=== PATIENT | male | born 1975 | race Caucasian/White ===

== ENCOUNTER 2018-01-18 08:39 | Inpatient (IN) ==
[2018-01-18] MEDS ORDERED: Ketorolac 30 MG/ML VIAL IVP ONE (09:02)
--- NOTE | 2018-01-18 09:02 | Emergency Department Note ---
Disposition Clinical Impression: D-dimer, elevated Chest pain Qualifiers: Chest pain type: other chest pain Qualified Code(s): R07.89 - Other chest pain ; R07.8 - Other chest pain Disposition: Admitted As Inpatient Condition: Fair SOB HPI - General Chief Complaint: ED Shortness of Breath/Dyspnea Stated Complaint: PATSY Time Seen by Provider: 01/18/18 08:49 Source: patient, family Mode of arrival: EMS Limitations: no limitations Nursing Notes Reviewed: Yes Vital Signs Reviewed: Yes - History of Present Illness 42 year old previous smoker, DVT (in March 2017, not on blood thinner) presents with shortness of breath and chest pain for a month. Pt was diagnosed with pneumonia in November. SInce a month ago, pt felt constant shortness of breath and bilateral lower rib pain. No cough. No chill and fever. Pt reported activity intolerance. Walking a little bit may cause him can't catch breath. Pt Subjective Complaint: shortness of breath, chest pain Onset (ago): month(s) (1) Severity: moderate Improves with: rest Worsens with: movement Known history of: other (recent pneumonia) - Related Data Home Medications Medication Instructions Recorded Confirmed Hydralazine HCl 100 mg PO TID 01/18/18 01/18/18 amLODIPine PO DAILY 01/18/18 cloNIDine HCl [Clonidine HCl] 0.2 mg PO BID 01/18/18 01/18/18 Allergies Allergy/AdvReac Type Severity Reaction Status Date / Time naproxen AdvReac Headache Verified 01/18/18 08:42 Constitutional: Denies: fever, chills, weakness Eyes: Denies: eye pain, eye discharge, vision change ENT ED: Denies: ear pain, throat pain, dental pain Cardiovascular: Reports: chest pain, dyspnea on exertion. Denies: palpitations , syncope Respiratory: Reports: dyspnea. Denies: cough, wheezes Gastrointestinal: Denies: abdominal pain, nausea, vomiting Genitourinary: Denies: urgency, dysuria, frequency Musculoskeletal: Denies: back pain, neck pain, joint swelling Integumentary: Denies: rash, abrasion Neurological: Denies: headache, weakness, numbness Psychiatric: Denies: anxiety, depression, suicidal thoughts Endocrine: Denies: fatigue, heat or cold intolerance Hematological/Lymphatic: Denies: easy bleeding, easy bruising Allergic/Immunologic: Denies: facial swelling, urticaria Past Medical History - Past Medical History Medical history: Reports: DVT, hypertension Psychiatric history: Reports: anxiety - Social History Smoking Status: Current every day smoker Alcohol use: Reports: occasionally Drug use: Reports: marijuana Physical Exam - General Limitations: no limitations General appearance: alert - Head Head exam: atraumatic, normal inspection - Eye Eye exam: Present: normal appearance. Absent: scleral icterus, conjunctival injection - ENT ENT exam: normal exam - Neck Neck exam: Present: normal inspection, full ROM, trachea midline. Absent: tenderness - Chest Chest inspection: Present: normal inspection, symmetric chest wall rise. Absent : tenderness - Respiratory Respiratory exam: Present: normal lung sounds bilaterally. Absent: respiratory distress, wheezes - Cardiovascular Cardiovascular exam: Present: tachycardia - Abdominal Exam Abdominal exam: Present: soft, Non-Tender - Extremities Exam Extremities exam: Present: normal inspection, full ROM. Absent: tenderness - Back Exam Back exam: Present: normal inspection, full ROM. Absent: tenderness - Neurological Exam Neurological exam: Present: alert, oriented X3 - Psychiatric Psychiatric exam: Present: normal affect, normal mood - Skin Skin exam: Present: warm, intact Course Vital Signs Temperature 0 F L 01/18/18 08:39 Pulse Rate 103 01/18/18 08:39 Respiratory Rate 24 01/18/18 08:39 Blood Pressure 215/162 01/18/18 08:39 O2 Sat by Pulse Oximetry 100 01/18/18 08:39 Temperature 97.9 F 01/18/18 09:45 Pulse Rate 97 01/18/18 09:45 Respiratory Rate 24 01/18/18 11:12 Blood Pressure 212/156 01/18/18 11:12 O2 Sat by Pulse Oximetry 99 01/18/18 09:45 Oxygen Delivery Oxygen Delivery Nasal Cannula Shortness of Breath/Dyspnea - [facility] Narrative Medical decision making narrative: 42 year old male presents with shortness of breath and bilateral rib pain for a month. Got worse since last night. Associate with activity intolerance. No cough. No chill and fever. No leg pain. History of DVT on March 2017 in left leg, not currently on blood thinner, reported that he was told still has blood clot in leg; had Pneumonia in November. physical exam: tachycardia, lung sounds clear. Rectal exam normal, Guiac test negative. EKG unremarkable. Labs D-dimer 3136, Troponin 0.15, cr. 6.5 , VQ ordered, results pending. impression: PE VS. ID , plan : start Heparin drip, admit. Discussed with Dr. Saavedra who agrees the above plan. - Lab Data Lab results reviewed: Yes I reviewed the patient's lab results. Result diagrams: 01/18/18 09:00 01/18/18 09:00 Lab Results 01/18/18 01/18/18 01/18/18 Range/Units 09:00 09:00 09:00 WBC 8.7 (4.3-11.1) K/mcL RBC 3.43 L (4.19-5.50) M/mcL Hgb 9.7 L (12.9-16.9) g/dL Hct 28.5 L (37.5-50.1) % MCV 83.1 (83.0-100.0) fL MCH 28.3 (28.0-33.3) pg MCHC 34.0 (31.6-35.5) g/dL RDW 14.7 H (11.5-14.5) % Plt Count 200 (140-400) K/mcL MPV 10.7 (9.4-12.4) fL Immature Gran % 0.5 (0-4) % Seg Neutrophils % 78.5 % Lymphocytes % 14.3 % Monocytes % 5.6 % Eosinophils % 0.3 % Basophils % 0.8 % Neutrophils # 6.8 (1.6-8.9) K/mcL Lymphocytes # 1.2 (0.6-4.6) K/mcL Monocytes # 0.5 (0.0-1.3) K/mcL Eosinophils # 0.0 (0.0-0.6) K/mcL Basophils # 0.1 (0.0-0.2) K/mcL PT 14.6 H (9.4-12.1) Seconds INR 1.3 APTT 30.9 (26.0-36.0) Seconds D-Dimer 3106 H (0-500) ng/mLFEU Sodium 139 (136-145) mEq/L Potassium 3.5 (3.5-5.1) mEq/L Chloride 106 (98-107) mEq/L Carbon Dioxide 16 L (23-29) mEq/L BUN 63 H (6-20) mg/dL Creatinine 6.37 H (0.70-1.30) mg/dL Est GFR ( Amer) 12 L (> 60) Est GFR (Non-Af Amer) 10 L (> 60) BUN/Creatinine Ratio 10 (6-26) Glucose 142 H (70-105) mg/dL Calculated Osmolality 308 H (280-300) Lactic Acid (0.5-2.2) mmol/L Calcium 9.7 (8.6-10.3) mg/dL Total Bilirubin 1.2 H (0.3-1.0) mg/dL AST 40 H (13-39) Units/L ALT 49 (7-52) Units/L Alkaline Phosphatase 132 H (34-104) Units/L Troponin I 0.15 H* (< 0.04) ng/mL Serum Total Protein 6.5 (6.4-8.9) g/dL Albumin 4.2 (3.5-5.7) g/dL Globulin 2.3 L (2.4-3.5) g/dL Albumin/Globulin Ratio 1.8 (1.1-2.2) 01/18/18 Range/Units 10:48 WBC (4.3-11.1) K/mcL RBC (4.19-5.50) M/mcL Hgb (12.9-16.9) g/dL Hct (37.5-50.1) % MCV (83.0-100.0) fL MCH (28.0-33.3) pg MCHC (31.6-35.5) g/dL RDW (11.5-14.5) % Plt Count (140-400) K/mcL MPV (9.4-12.4) fL Immature Gran % (0-4) % Seg Neutrophils % % Lymphocytes % % Monocytes % % Eosinophils % % Basophils % % Neutrophils # (1.6-8.9) K/mcL Lymphocytes # (0.6-4.6) K/mcL Monocytes # (0.0-1.3) K/mcL Eosinophils # (0.0-0.6) K/mcL Basophils # (0.0-0.2) K/mcL PT (9.4-12.1) Seconds INR APTT (26.0-36.0) Seconds D-Dimer (0-500) ng/mLFEU Sodium (136-145) mEq/L Potassium (3.5-5.1) mEq/L Chloride (98-107) mEq/L Carbon Dioxide (23-29) mEq/L BUN (6-20) mg/dL Creatinine (0.70-1.30) mg/dL Est GFR ( Amer) (> 60) Est GFR (Non-Af Amer) (> 60) BUN/Creatinine Ratio (6-26) Glucose (70-105) mg/dL Calculated Osmolality (280-300) Lactic Acid 1.4 (0.5-2.2) mmol/L Calcium (8.6-10.3) mg/dL Total Bilirubin (0.3-1.0) mg/dL AST (13-39) Units/L ALT (7-52) Units/L Alkaline Phosphatase (34-104) Units/L Troponin I (< 0.04) ng/mL Serum Total Protein (6.4-8.9) g/dL Albumin (3.5-5.7) g/dL Globulin (2.4-3.5) g/dL Albumin/Globulin Ratio (1.1-2.2) - Radiology Data Radiology results reviewed: Yes I reviewed the patient's radiology results. Attestation Statement - Attestation Attestation: I examined this patient and my medical decision-making was reviewed with the Resident Physician. I agree with the documented findings, disposition and treatment plan as described except to the extent set forth below. Patient to the ED complaining of shortness of breath. Patient states he has been short of breath since he was not admitted in November for pneumonia. He states he never really got better but it worsened last night. No fever. Dry cough. Patient awake and alert on examination. Lung sounds is diminished. Abdomen soft. He is afebrile. Plan. Patient is a d-dimer 3000. VQ scan pending. Chest x-ray shows a possible infiltrate. Creatinine is 6. We will admit. Patient unable to tolerate VQ scan. Dr. Eastman aware. Request bladder scan. Dining Room Helper states that we will obtain this and contact him with results. Second liter IV fluids ordered.
[2018-01-18 09:21] LABS: Basophils # 0.1 K/mcL (0.0-0.2); Basophils % 0.8 %; Eosinophils % 0.3 %; Hematocrit 28.5 % (37.5-50.1); Hemoglobin 9.7 g/dL (12.9-16.9); Immature Granulocytes % 0.5 % (0-4); Lymphocytes # 1.2 K/mcL (0.6-4.6); Lymphocytes % 14.3 %; Mean Corpuscular Hemoglobin 28.3 pg (28.0-33.3); Mean Corpuscular Volume 83.1 fL (83.0-100.0); Mean Platelet Volume 10.7 fL (9.4-12.4); Monocytes # 0.5 K/mcL (0.0-1.3); Monocytes % 5.6 %; Neutrophils # 6.8 K/mcL (1.6-8.9); Platelet Count 200 K/mcL (140-400); Red Blood Count 3.43 M/mcL (4.19-5.50); Red Cell Distribution Width 14.7 % (11.5-14.5); Segmented Neutrophils % 78.5 %
[2018-01-18 09:38] LABS: Albumin 4.2 g/dL (3.5-5.7); Albumin/Globulin Ratio 1.8 (1.1-2.2); Bilirubin,Total 1.2 mg/dL (0.3-1.0); Calcium 9.7 mg/dL (8.6-10.3); Globulin 2.3 g/dL (2.4-3.5); Potassium 3.5 mEq/L (3.5-5.1); Total Protein 6.5 g/dL (6.4-8.9)
[2018-01-18 09:39] LABS: Troponin I 0.15 ng/mL (< 0.04)
[2018-01-18] MEDS ORDERED: 0.9 % Sodium Chloride 1,000 ML IVC ONE ×2 (09:43→11:14)
[2018-01-18] MEDS ORDERED: *HR* Heparin 5,000 UNIT/ML VIAL IVP ONE (09:57)
[2018-01-18 10:19] LABS: INR 1.3; Prothrombin Time 14.6 Seconds (9.4-12.1)
[2018-01-18 10:22] LABS: Activated Partial Thrombo Time 30.9 Seconds (26.0-36.0)
--- NOTE | 2018-01-18 10:48 | Internal Med History&Physical ---
<Robert Reyes - Last Filed: 01/18/18 17:46> Date of Encounter: 01/18/18 Time of Encounter: 10:45 Assessment and Plan (1) Pulmonary embolism Current visit: Yes Status: Acute Patient's condition is concerning for pulmonary embolism. -Patient presented with an elevated d-dimer at 3136, elevated troponin 0.15, shortness of breath, tachycardia, and has a history of prior DVT. -DVT was in March 2017; patient has not been on a blood thinner. Plan: -VQ scan -Heparin drip -Trend troponin -O2 via nasal cannula. SNOMED Code(s): 46018579 (2) PNA (pneumonia) Current visit: Yes Status: Acute Patient presented with shortness of breath. -Was hospitalized in November for pneumonia; completed course of Levaquin. -Chest x-ray demonstrates left basilar opacity suffocation with mild pleural effusion suggestive of pneumonia. -Patient's white count is normal. Plan: -Blood and sputum culture -Urine antigens -Vancomycin and Levaquin (3) Hypertensive urgency Current visit: Yes Status: Acute Patient presented with an elevated blood pressure at 215/162. -Patient has a known history of hypertension. Plan: -Restart home clonidine, hydralazine, amlodipine. (4) Renal failure Current visit: Yes Status: Acute Patient presented with an elevated creatinine at 6.5. -No known history of kidney disease. -RAUDEL versus CKD -Retroperitoneal ultrasound. -Urinalysis -Fractional excretion of sodium -Consult nephrology -IV fluids, avoid nephrotoxins -24 hr urine protein, urine eosinophils (5) Anemia Current visit: Yes Status: Acute Patient has a hemoglobin of 9.7 on admission. -No prior hemoglobin levels to compare to -FOBT Internal Medicine - H&P: HPI Admitted From: Home History of present illness: Patient is a 42-year-old male who presents to the ED with shortness of breath and bilateral rib pain 1 month. Pain worsened last night. Activity intolerance. Denies cough, fever, chills. Had a previous DVT in March 2017; not currently on a blood dinner. Patient was diagnosed with pneumonia in November. States that since this, he has felt constant shortness of breath and bilateral lower rib pain. Upon arrival, patient had an elevated blood pressure 215/162. Patient was tachycardic at 10 3 bpm, respiratory rate was 24. D-dimer was noted to be elevated at 3136, troponin is elevated at 0.15, creatinine is 6.5. Chest x-ray demonstrated left basilar opacification with mild pleural effusion suggesting pneumonia with parapneumonic effusion. Patient was seen and examined at bedside this morning. Patient reports that his symptoms have not improved since admission. He still feels pain in the ribs bilaterally, as well as shortness of breath. Reports some anxiety. Denies having a productive cough at this time. Past Med Surg Social Fam HX - Past Medical History Medical history: DVT, hypertension Psychiatric history: anxiety - Social History Smoking Status: Current every day smoker Alcohol use: occasionally Drug use: marijuana - Family History Mother Hx Family Cardiac Disorders: Yes (HTN) Internal Medicine - H&P: Meds Hydralazine HCl 100 mg PO TID 01/18/18 [History] amLODIPine PO DAILY 01/18/18 [History] cloNIDine HCl [Clonidine HCl] 0.2 mg PO BID 01/18/18 [History] 3 Allergy/AdvReac Type Severity Reaction Status Date / Time naproxen AdvReac Headache Verified 01/18/18 08:42 All Systems PM: A 10-system review of systems was performed and is negative for pertinent findings except as documented above in the HPI. - Constitutional Constitutional: no chills, no fever(s), no night sweats - EENT Eyes: no change in vision, no discharge, no pain, no photophobia Ears: no ear discharge, no ear pain, no tinnitus Nose, mouth and throat: no dysphagia, no nasal discharge, no neck pain - Cardiovascular Cardiovascular ROS IM: no chest pain, no dyspnea, no lightheadedness, no palpitations, no syncope - Respiratory Respiratory: cough, dyspnea, no wheezing, no excessive phlegm production - Gastrointestinal Gastrointestinal: no abdominal pain, no diarrhea, no hematemesis, no hematochezia, no melena, no nausea, no vomiting - Musculoskeletal Musculoskeletal ROS IM: no numbness, no tingling - Integumentary Integumentary IM: no rash, no unusual bruising - Neurological Neurological ROS: no confusion, no convulsions, no focal weakness, no numbness, no tingling, no tremor(s) - Hematologic/Lymphatic Hematologic/Lymphatic: no easy bruising - Constitutional Vitals: Temp Pulse Resp BP Pulse Ox 97.9 F 97 20 209/157 99 01/18/18 09:45 01/18/18 09:45 01/18/18 09:45 01/18/18 09:45 01/18/18 09:45 General appearance: Present: mild distress, A&O X 3, answers questions appropriately - Head Head exam: Present: atraumatic, normocephalic - Eye Eye exam: Present: PERRL, conjuntiva pink, sclera anicteric Pupils: Present: PERRL - Neck Neck exam general surgery: Present: supple, trachea midline. Absent: lymphadenopathy - Respiratory Respiratory exam: Present: decreased breath sounds. Absent: accessory muscle use, rales, rhonchi, wheezes - Cardiovascular Cardiovascular exam: Present: +S1, +S2, tachycardia. Absent: diastolic murmur, gallop, rubs, systolic murmur - Extremities Exam Extremities exam: Present: warm, radial pulses palpable and symmetrical. Absent : calf tenderness, cyanotic, pedal edema - Neurological Exam Neurological exam: Present: CN II-XII intact, oriented X3, no focal deficits. Absent: pronater drift, facial droop, speech deficit - Skin Skin exam: Present: dry, intact Internal Med - H&P Results - Labs CBC & Chem 7: 01/18/18 09:00 01/18/18 09:00 Labs: Short CBC 01/18/18 Range/Units 09:00 WBC 8.7 (4.3-11.1) K/mcL Hgb 9.7 L (12.9-16.9) g/dL Hct 28.5 L (37.5-50.1) % Plt Count 200 (140-400) K/mcL Neutrophils # 6.8 (1.6-8.9) K/mcL BMP 01/18/18 09:00 Sodium 139 Potassium 3.5 Chloride 106 Carbon Dioxide 16 L BUN 63 H Creatinine 6.37 H Glucose 142 H Calcium 9.7 Cardiac Enzymes 01/18/18 Range/Units 09:00 Troponin I 0.15 H* (< 0.04) ng/mL Liver Function 01/18/18 Range/Units 09:00 Total Bilirubin 1.2 H (0.3-1.0) mg/dL AST 40 H (13-39) Units/L ALT 49 (7-52) Units/L Alkaline Phosphatase 132 H (34-104) Units/L Albumin 4.2 (3.5-5.7) g/dL - Impressions ITS Impressions Chest X-Ray 01/18/18 08:52 IMPRESSION: Left basilar opacification with mild pleural effusion suggesting pneumonia with parapneumonic effusion in the appropriate clinical setting. RECOMMENDATIONS: Radiographic follow up to resolution. D/ / Lorin Reyes MD / Lorin Reyes MD Interpreting Provider: Lorin Reyes MD <Donnell Reddy - Last Filed: 01/19/18 12:17> Date of Encounter: 01/19/18 Internal Medicine - H&P: HPI History of present illness: Mr. Schmid is a 42 year old male All Systems PM: A 10-system review of systems was performed and is negative for pertinent findings except as documented above in the HPI. - Constitutional Vitals: Temp Pulse Resp BP Pulse Ox 98.6 F 90 16 130/82 95 01/19/18 10:57 01/19/18 10:57 01/19/18 10:57 01/19/18 10:57 01/19/18 10:57 Internal Med - H&P Results - Labs CBC & Chem 7: 01/19/18 08:41 01/19/18 08:41 Labs: Short CBC 01/19/18 Range/Units 08:41 WBC 7.4 (4.3-11.1) K/mcL Hgb 8.5 L (12.9-16.9) g/dL Hct 25.6 L (37.5-50.1) % Plt Count 156 (140-400) K/mcL Neutrophils # 5.4 (1.6-8.9) K/mcL BMP 01/19/18 08:41 Sodium 138 Potassium 3.1 L Chloride 107 Carbon Dioxide 19 L BUN 61 H Creatinine 6.49 H Glucose 122 H Calcium 9.0 - Impressions ITS Impressions Retroperitoneum Ultrasound 01/18/18 19:00 IMPRESSION: 5 mm nonobstructing nephrolith on the left. Simple right renal cyst. Small left effusion. D/ / Bala Mcdonough MD / Bala Mcdonough MD Interpreting Provider: Bala Mcdonough MD - Attending Attestation I examined this patient and my medical decision-making was reviewed with the Resident Physician. I agree with the documented findings, disposition and treatment plan as described except to the extent set forth below.
[2018-01-18] MEDS: Heparin 25,000 UNIT/500 ML D5W 25,000 UNIT/500 ML BAG IVC SCH ×2 (10:50→11:00)
[2018-01-18] MEDS ORDERED: *HR* LORazepam 2 MG/ML VIAL IVP ONE (10:56)
[2018-01-18] MEDS ORDERED: *HR* LORazepam 2 MG/ML VIAL ONE (10:57)
[2018-01-18] MEDS ORDERED: Levofloxacin 750 MG/150 ML 750 MG/150 ML BAG IVPB ONE (12:00)
[2018-01-18] MEDS ORDERED: Vancomycin 1 EACH in 0.9 % Sodium Chloride 250 ML IVPB SCH (12:00)
[2018-01-18] MEDS ORDERED: cloNIDine HCl 0.1 MG TABLET PO SCH (12:15)
[2018-01-18] MEDS: hydrALAZINE 25 MG TABLET PO SCH ×2 (13:23→21:16)
[2018-01-18] MEDS ORDERED: amLODIPine 5 MG TABLET PO SCH (13:30)
[2018-01-18] MEDS: *HR* OxyCODONE/APAP 5/325 TABLET PO PRN ×2 (13:39→21:16)
[2018-01-18 14:01] LABS: Amphetamine Screen,Urine Positive ng/mL (Cutoff=1000); Barbiturate Screen,Urine Negative ng/mL (Cutoff=200); Benzodiazepines Screen,Urine Negative ng/mL (Cutoff=200); Cannabinoid Screen,Urine Negative ng/mL (Cutoff = 50); Cocaine Screen,Urine Negative ng/mL (Cutoff= 300); Opiate Screen,Urine Negative ng/mL (Cutoff=300); Phencyclidine Screen,Urine Negative ng/mL (Cutoff=25)
[2018-01-18] MEDS: *HR* LORazepam 1 MG TABLET PO PRN (14:17)
[2018-01-18] MEDS: amLODIPine 5 MG TABLET PO SCH (16:22)
[2018-01-18] MEDS: Cefepime HCl 1,000 MG in Water for inj. (sterile) 20 ML 10 ML IVP SCH (16:22)
[2018-01-18] MEDS: cloNIDine HCl 0.1 MG TABLET PO SCH ×2 (16:22→21:16)
--- NOTE | 2018-01-18 17:40 | Nephrology Consult Note ---
Date of Encounter: 01/18/18 Time of Encounter: 17:35 Assessment and Plan (1) Renal failure Current Visit: Yes Status: Deleted Elevated SCr unclear whether acute or chronic Will obtain US of kidney Will check urine for UA, sodium, eosinophils, protein and creatinine No acute indication for [employer] at this time Avoid nephrotoxins if possible Will check JF and complements, C3, C4 Will check uric acid and CPK levels If records can be obtained from [facility], that would be great Qualifiers: Renal failure chronicity: unspecified chronicity Qualified Code(s): N19 - Unspecified kidney failure (2) Hypertensive urgency Current Visit: Yes Status: Acute Resume home BP regimen, unclear if taking. Agree with clonidine tid instead of bid Agree with amlodipine at 10mg instead of 5mg daily (3) Acute respiratory failure with hypoxia Current Visit: Yes Status: Acute Abx and heparin per primary team Wound not recommend CTA if possible given RAUDEL to prevent DEANDRE History of Present Illness - Reason for Consult Consult date: 01/18/18 Acute Kidney Injury, Chronic Kidney Disease Requesting physician: Robert Reyes - History of Present Illness 42 y o male with PMH of DVT not on anticoag, HTN and smoker admitted with a month long SOB and chest pain with concerns for PE and PNA. Renal consulted for elevated SCr of 6.37, GFR 10. No baseline available as pt just recently moved to the area from [facility] where he was hospitalized in november for PNA and may have been told of renal dysfunction the. He denies any other prior history or mention of renal disease. He denies any family history of renal disease as well. He denied any urinary sxs as well. BP readings noted very elevated in the 200s systolic on presentation. Pt seen and examined complaining of severe rib pain bilateral and visibly dyspneic. No NSAIDs use. Past Med Surg Social Fam HX - Past Medical History Medical history: DVT, hypertension Psychiatric history: anxiety - Social History Smoking Status: Current every day smoker Alcohol use: occasionally Drug use: marijuana - Family History Mother Hx Family Cardiac Disorders: Yes (HTN) Medications and Allergies Hydralazine HCl 100 mg PO TID 01/18/18 [History] amLODIPine PO DAILY 01/18/18 [History] cloNIDine HCl [Clonidine HCl] 0.2 mg PO BID 01/18/18 [History] 3 Allergy/AdvReac Type Severity Reaction Status Date / Time naproxen AdvReac Headache Verified 01/18/18 08:42 Review of Systems All Systems: reviewed and no additional remarkable complaints except as stated ( 10 systems reviewed) Exam - Vital Signs Vital signs: Initial Vital Signs Temp Pulse Resp BP Pulse Ox 0 F L 103 24 215/162 100 01/18/18 08:39 01/18/18 08:39 01/18/18 08:39 01/18/18 08:39 01/18/18 08:39 Vital Signs - Last 8 Hours Temp Pulse Resp BP Pulse Ox 01/18/18 15:29 97.5 F L 101 16 195/149 98 01/18/18 14:13 106 209/155 97 01/18/18 12:20 98.9 F 102 18 211/168 98 01/18/18 11:12 24 212/156 Intake and Output 01/18/18 01/18/18 01/18/18 07:59 15:59 23:59 Intake Total 0 / 0 Output Total 100 / 100 Balance -100 / -100 Intake: Oral 0 / 0 Output: Catheter 100 / 100 - General Appearance General appearance: moderate distress (with SOB and pain) EENT: ATNC, mucous membranes moist Neck: no JVD, supple Additional Comments: decreased BS bilat Cardiology: no edema, normal S1, normal S2 Gastrointestinal: no tenderness, no guarding Integumentary: warm and dry Neurologic: no focal deficit Musculoskeletal: no deformities Psychiatric: mood/affect appropriate, cooperative Results - Lab Results 01/21/18 03:45 01/21/18 03:45 Most recent lab results Calcium 9.7 mg/dL (8.6-10.3) 01/18/18 09:00 Consult Discharge Plan - Plan Referrals: NONE,PCP [Primary Care Provider] -
[2018-01-18 19:10] LABS: Uric Acid 10.5 mg/dL (2.3-7.6)
--- NOTE | 2018-01-18 20:30 | Electrocardiograph Report ---
[place] [address] Test Date: 2018-01-18 Pat Name: Jose Schmid Department: 102 Room: 2A23 Gender: M [employer] Hel[employer]: : 1975 Requested By: Barry Mcmanus Order Number: [id number] Reading MD: Zack Pastor MD Measurements Intervals [place] Rate: 101 P: 52 GA: 164 QRS: 15 QRSD: 117 T: 180 QT: 345 QTc: 403 Interpretive Statements SINUS TACHYCARDIA LEFT ATRIAL ENLARGEMENT LEFT VENTRICULAR HYPERTROPHY AND ST-T CHANGE BASELINE ARTIFACT COMPLICATES ACCURATE INTERPRETATION Electronically Signed On 01-18-2018 20:28:54 EDT by Zack Pastor MD
[2018-01-19] MEDS ORDERED: *HR* Heparin 5,000 UNIT/ML VIAL IVP PRN (00:54)
[2018-01-19] MEDS: *HR* LORazepam 1 MG TABLET PO PRN ×2 (01:29→22:04)
[2018-01-19] MEDS: *HR* OxyCODONE/APAP 5/325 TABLET PO PRN (05:42)
[2018-01-19] MEDS: Cefepime HCl 1,000 MG in Water for inj. (sterile) 20 ML 10 ML IVP SCH ×2 (05:42→16:53)
[2018-01-19] MEDS: Heparin 25,000 UNIT/500 ML D5W 25,000 UNIT/500 ML BAG IVC SCH (07:26)
[2018-01-19] MEDS: amLODIPine 5 MG TABLET PO SCH (08:43)
[2018-01-19] MEDS: cloNIDine HCl 0.1 MG TABLET PO SCH ×3 (08:43→22:04)
[2018-01-19] MEDS: hydrALAZINE 25 MG TABLET PO SCH ×3 (08:44→22:04)
[2018-01-19 09:01] LABS: Basophils # 0.1 K/mcL (0.0-0.2); Basophils % 0.7 %; Eosinophils # 0.4 K/mcL (0.0-0.6); Eosinophils % 5.6 %; Hematocrit 25.6 % (37.5-50.1); Hemoglobin 8.5 g/dL (12.9-16.9); Immature Granulocytes % 0.4 % (0-4); Lymphocytes # 1.2 K/mcL (0.6-4.6); Lymphocytes % 15.6 %; Mean Corpuscular HGB Conc 33.2 g/dL (31.6-35.5); Mean Corpuscular Hemoglobin 28.3 pg (28.0-33.3); Mean Corpuscular Volume 85.3 fL (83.0-100.0); Mean Platelet Volume 9.9 fL (9.4-12.4); Monocytes # 0.4 K/mcL (0.0-1.3); Neutrophils # 5.4 K/mcL (1.6-8.9); Platelet Count 156 K/mcL (140-400); Red Cell Distribution Width 14.7 % (11.5-14.5); Segmented Neutrophils % 72.7 %
[2018-01-19 09:22] LABS: Potassium 3.1 mEq/L (3.5-5.1)
[2018-01-19] MEDS ORDERED: Vancomycin 1 EACH in 0.9 % Sodium Chloride 250 ML IVPB PRN (10:15)
--- NOTE | 2018-01-19 10:55 | Nephrology Progress Note ---
<Dillon Flowers - Last Filed: 01/19/18 11:47> Date of Encounter: 01/19/18 Time of Encounter: 10:51 - Assessment and Plan (5) Renal failure Status: Acute SCr increased from 6.37 to 6.49. Unremarkable U/S of Kidney is more suggestive of a Pre-renal process. Uric Acid 10.5. CK is 38, unlikely caused by muscle breakdown. Etiology remains unclear for elevated Cr. - U/A, Nathanael, Eosinophils and UProtein - pending. - JF, completments, C3, and C4 - pending - continue to trend Cr - BP is better controlled MAP 173 -> today MAP 118 - avoid nephrotoxins Qualifiers: Renal failure chronicity: unspecified chronicity Qualified Code(s): N19 - Unspecified kidney failure Subjective Principal diagnosis: renal failure Interval history: Mr Mcgowan is a 42 yo M w/ pmh of DVT not on anticoag, HTN, smoker, MJ user continues to have shortness of breath at rest, mildly improved from yesterday. Patient denies chest pain at this time. Renal was consulted for SCr 6.37, GFR 10, BP's in 200's. After further discussion with patient he mentions that he tested positive for flu A, B, and had PNA from late oct to November. He also had encounters with police, when he had has ribs fractured in december. Objective - Vital Signs Vital signs: Vital Signs Temp Pulse Resp BP Pulse Ox 01/19/18 07:03 97.9 F 84 16 155/99 97 01/19/18 04:30 97.7 F 79 16 138/83 95 01/19/18 04:09 97.5 F L 83 16 150/104 97 01/18/18 23:25 97.7 F 82 16 134/87 97 01/18/18 18:58 97.6 F 88 18 181/146 97 01/18/18 15:29 97.5 F L 101 16 195/149 98 Intake and Output 01/18/18 01/19/18 01/19/18 23:59 07:59 15:59 Intake Total 240 / 240 910 / 910 35 / 35 Output Total 200 / 200 50 / 50 600 / 600 Balance 40 / 40 860 / 860 -565 / -565 Intake: IV Fluids 510 / 510 35 / 35 Heparin 25,000 UNIT/500 ML D5W 500 / 500 25 / 25 25,000 unit In 500 ml @ 14 UNIT /KG/HR 22.861 mls/hr IVC . [id number] [facility] Rx#:[id number] Maxipime 1,000 MG In Water for inj. (sterile) 10 ML @ 150 mls/ hr IVP Q12HR [facility] Rx#:[id number] Oral 240 / 240 400 / 400 Output: Urine 300 / 300 Catheter 200 / 200 50 / 50 300 / 300 Urethral (Christian) 300 / 300 Other: Meal npo Weight 74.117 kg Patient Weight 01/19/18 23:59 Weight 74.117 kg - General Appearance General appearance: Present: well-developed, well-nourished, appears started age , anxious EENT: Present: mucous membranes dry Neck: Present: no JVD, no thyromegaly, no carotid bruit, supple Additional Comments: Grossly PATSY. Difficult to hear lungs due to transmitted breath sounds. Cardiology: Present: no murmurs, no rub, no gallops, no edema, regular rate, regular rhythm, normal S1, normal S2 Gastrointestinal: Present: normoactive bowel sounds, no tenderness, no guarding , no masses Integumentary: Present: no rash, warm and dry Neurologic: Present: no focal deficit, no asterixis, alert and oriented x3 Psychiatric: Present: mood/affect appropriate, cooperative - Lab 01/19/18 08:41 01/19/18 08:41 Most recent lab results Calcium 9.0 mg/dL (8.6-10.3) 01/19/18 08:41 - VTE Reasons for not Prescribing Prophylaxis: Not indicated-Anticoagulated or INR therapeutic Consult Discharge Plan - Plan Instructions: Acute Kidney Injury (DC), Hemodialysis (DC) Referrals: [facility] [Outside] (request sent for a new patient hospital follow up on 01/26/18. Phones not working) Gely Steel MD [Partnered Physician] - (1-2 weeks patient will see the physician to HD clinic) Prescriptions: amLODIPine [Norvasc] 10 mg PO DAILY #30 tablet Carvedilol [Coreg] 12.5 mg PO BIDWM #60 tablet cloNIDine HCl [CloNIDine HCl] 0.1 mg PO TID #90 tablet Hydralazine HCl 100 mg PO TID #90 tablet <Gely Steel - Last Filed: 02/11/18 19:22> Date of Encounter: 01/19/18 - Assessment and Plan (1) Renal failure Status: Deleted Qualifiers: Renal failure chronicity: unspecified chronicity Qualified Code(s): N19 - Unspecified kidney failure (2) Hypertensive urgency Status: Acute (3) PNA (pneumonia) Status: Acute Qualifiers: Pneumonia type: due to unspecified organism Laterality: left Lung location: lower lobe of lung Qualified Code(s): J18.1 - Lobar pneumonia, unspecified organism Objective - Lab 01/27/18 04:11 01/27/18 04:11 Most recent lab results Calcium 9.3 mg/dL (8.6-10.3) 01/27/18 04:11 Magnesium 2.1 mg/dL (1.6-2.6) 01/27/18 04:11 Urine Creatinine 132 mg/dL 01/20/18 00:55 Urine Sodium 45.7 mEq/L 01/20/18 00:55 Urine Total Protein 183 mg/dL (1-14) H 01/20/18 00:55 - Attending Attestation Pt seen and examined feels better with SOB and BP readings better. SCr continues to worse despite IVF, will continue for now. 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 Awaiting workup labs. Continue to avoid nephrotoxins if possible.
[2018-01-19] MEDS ORDERED: Aminoglycoside Consult 1 EACH MC ONE (10:59)
[2018-01-19] MEDS ORDERED: *HR* FentaNYL (PF) 100 MCG/2 ML VIAL IVP PRN (11:29)
[2018-01-19] MEDS ORDERED: *HR* OxyCODONE/APAP 5/325 TABLET PO PRN (11:31)
[2018-01-19] MEDS ORDERED: *HR* LORazepam 2 MG/ML VIAL IVP ONE (11:55)
[2018-01-19 14:32] LABS: Bilirubin,Urine Negative (Negative); Blood,Urine Trace (Negative); Clarity,Urine Clear (Clear); Color,Urine Yellow (Yellow); Glucose,Urine (UA) Normal (Normal); Ketones,Urine Negative (Negative); Leukocyte Esterase,Urine Negative (Negative); Nitrite,Urine Negative (Negative); Protein,Urine >=300 mg/dL (Neg-Trace); Specific Gravity,Urine 1.024 (1.010-1.025); Urobilinogen,Urine Normal (Normal)
[2018-01-19 14:34] LABS: Bacteria,Urine None Seen per hpf (None-Few); Hyaline Casts,Urine None Seen per lpf (None-Few); RBC,Urine 50-100 per hpf (0-3); Squamous Epithelial Cell,Urine Moderate per lpf (None-Few)
--- NOTE | 2018-01-19 14:34 | Internal Med Progress Note ---
Date of Encounter: 01/19/18 Time of Encounter: 10:50 - Assessment and plan (1) Acute respiratory failure with hypoxia Current Visit: Yes Status: Acute Assessment and plan: With pneumonia and COPD exacerbation reviewed chest x-ray by myself showing left lower lobe infiltrate cont empirical abx Levaquin and Cefepime cont Duoneb ordered step pneumonia, Legionella, sputum culture and respiratory viral panel (2) PNA (pneumonia) Current Visit: Yes Status: Acute Assessment and plan: Mostly bacterial continue broad spec abx Cefepime and Levaquin Qualifiers: Pneumonia type: due to unspecified organism Laterality: left Lung location: lower lobe of lung Qualified Code(s): J18.1 - Lobar pneumonia, unspecified organism (3) RAUDEL (acute kidney injury) Current Visit: Yes Status: Acute Assessment and plan: Seems to be he does have acute kidney injury with chronic kidney disease he was admitted at [facility] in November at the time they did mention that patient had chronic kidney disease and may need hemodialysis in a couple of years so I would obtain medical records from [facility] currently patient is nonoliguric has good urine output so far his renal ultrasound came back as benign Nephro on board cont IV hydration (4) D-dimer, elevated Current Visit: Yes Status: Acute Assessment and plan: With a past history of DVT high-risk for PE patient was not able to VQ scan yesterday his VQ scan today showed low probability for PE patient does not need any anticoagulation however due to his elevated troponin I would continue heparin drip for at least 48 hours (5) Tobacco dependence Current Visit: Yes Status: Acute Assessment and plan: counseled to quit (6) Substance abuse Current Visit: Yes Status: Acute Assessment and plan: counseled to quit he does smoke Marijuana regularly his HDS showed ampethamines (7) Elevated troponin Current Visit: Yes Status: Acute Assessment and plan: Slightly elevated troponin mostly demand ischemia + due to RAUDEL continue heparin drip for 48 hrs continue trending on troponin we will get echocardiogram (8) H/O deep venous thrombosis Current Visit: Yes Status: Acute - Subjective Interval history: Mr. Schmid is a 42-year-old male who presented to the ED with shortness of breath and bilateral rib pain 1 month. Denies cough, fever, chills. Patient was diagnosed with pneumonia in November. States that since this, he has felt constant shortness of breath and bilateral lower rib pain. Had a previous DVT in March 2017; not currently on any anti coag. Upon arrival, patient had an elevated blood pressure 215/162. Patient was tachycardic at 10 3 bpm, respiratory rate was 24. D-dimer was noted to be elevated at 3136, troponin is elevated at 0.15, creatinine is 6.5. Chest x-ray demonstrated left basilar opacification with mild pleural effusion suggesting pneumonia with parapneumonic effusion. Pt was admitted in the hospital and started him broad spec abx and heparin gtt. Pt states he feels little better today, still as severe b/l rib pain. Feeling weak and lethargic. Denied any oliguria. - Constitutional Vitals: Temp Pulse Resp BP Pulse Ox 98.6 F 90 16 130/82 95 01/19/18 10:57 01/19/18 10:57 01/19/18 10:57 01/19/18 10:57 01/19/18 10:57 General appearance: Present: mild distress, A&O X 3, answers questions appropriately - Head Head exam: Present: atraumatic, normal inspection - Neck Neck exam general surgery: Present: supple - Respiratory Respiratory exam: Present: decreased breath sounds, respiratory distress (mild) , wheezes (moderate). Absent: rales, rhonchi - Cardiovascular Cardiovascular exam: Present: RRR, +S1, +S2. Absent: tachycardia - GI/Abdominal GI/Abdominal exam: Present: normal bowel sounds, soft. Absent: rebound, rigid, tenderness - Back Exam Back exam: Absent: CVA tenderness (L), CVA tenderness (R) - Neurological Exam Neurological exam: Present: alert, oriented X3 - Psychiatric Psychiatric exam: Present: anxious - Skin Skin exam: Absent: rash Internal Medicine: Result - Labs CBC & Chem 7: 01/19/18 08:41 01/19/18 08:41 Labs: Short CBC 01/19/18 Range/Units 08:41 WBC 7.4 (4.3-11.1) K/mcL Hgb 8.5 L (12.9-16.9) g/dL Hct 25.6 L (37.5-50.1) % Plt Count 156 (140-400) K/mcL Neutrophils # 5.4 (1.6-8.9) K/mcL BMP 01/19/18 08:41 Sodium 138 Potassium 3.1 L Chloride 107 Carbon Dioxide 19 L BUN 61 H Creatinine 6.49 H Glucose 122 H Calcium 9.0 - ABG Interpretation ABG results: PT/INR, D-dimer PT 14.6 Seconds (9.4-12.1) H 01/18/18 09:00 D-Dimer 3106 ng/mLFEU (0-500) H 01/18/18 09:00 - Impressions Impressions Retroperitoneum Ultrasound 01/18/18 19:00 IMPRESSION: 5 mm nonobstructing nephrolith on the left. Simple right renal cyst. Small left effusion. D/ / Bala Mcdonough MD / Bala Mcdonough MD Interpreting Provider: Bala Mcdonough MD - VTE Reasons for not Prescribing Prophylaxis: Not indicated-Anticoagulated or INR therapeutic Consult Discharge Plan - Plan Referrals: NONE,PCP [Primary Care Provider] -
[2018-01-19] MEDS: *HR* Heparin 5,000 UNIT/ML VIAL IVP PRN (15:01)
[2018-01-19] MEDS: *HR* OxyCODONE/APAP 10/325 TABLET PO PRN ×2 (16:52→23:15)
[2018-01-20] MEDS: *HR* Heparin 5,000 UNIT/ML VIAL IVP PRN (00:13)
[2018-01-20] MEDS: Heparin 25,000 UNIT/500 ML D5W 25,000 UNIT/500 ML BAG IVC SCH (00:14)
[2018-01-20 01:52] LABS: Creatinine,Urine 132 mg/dL; Microalbumin,Urine > 450 mg/L; Protein/Creatinine Ratio,Urine 1.39 mg/mg (0.00-0.20); Sodium, Urine 45.7 mEq/L
[2018-01-20 06:00] LABS: Basophils % 0.6 %; Eosinophils # 0.4 K/mcL (0.0-0.6); Hematocrit 25.8 % (37.5-50.1); Hemoglobin 8.4 g/dL (12.9-16.9); Immature Granulocytes % 0.4 % (0-4); Lymphocytes # 1.2 K/mcL (0.6-4.6); Lymphocytes % 16.1 %; Mean Corpuscular HGB Conc 32.6 g/dL (31.6-35.5); Mean Platelet Volume 10.4 fL (9.4-12.4); Monocytes # 0.5 K/mcL (0.0-1.3); Monocytes % 6.4 %; Nucleated Red Blood Cells 0.3 /100 WBC (0); Platelet Count 176 K/mcL (140-400); Red Cell Distribution Width 14.9 % (11.5-14.5); Segmented Neutrophils % 70.5 %
[2018-01-20] MEDS: Cefepime HCl 1,000 MG in Water for inj. (sterile) 20 ML 10 ML IVP SCH (06:05)
[2018-01-20] MEDS: *HR* LORazepam 1 MG TABLET PO PRN ×3 (06:06→23:53)
[2018-01-20] MEDS: *HR* OxyCODONE/APAP 10/325 TABLET PO PRN ×2 (06:06→21:28)
[2018-01-20 06:14] LABS: Calcium 9.1 mg/dL (8.6-10.3); Magnesium 2.2 mg/dL (1.6-2.6); Potassium 3.1 mEq/L (3.5-5.1)
[2018-01-20] MEDS: hydrALAZINE 25 MG TABLET PO SCH ×3 (08:14→21:28)
[2018-01-20] MEDS: cloNIDine HCl 0.1 MG TABLET PO SCH ×4 (08:14→21:27)
[2018-01-20] MEDS: amLODIPine 5 MG TABLET PO SCH (08:14)
--- NOTE | 2018-01-20 11:37 | Nephrology Progress Note ---
<Dillon Flowers - Last Filed: 01/20/18 14:19> Date of Encounter: 01/20/18 Time of Encounter: 11:30 - Assessment and Plan (5) Renal failure Status: Deleted SCr increased from 6.37 to 6.49. Unremarkable U/S of Kidney is more suggestive of a Pre-renal process. Uric Acid 10.5. CK is 38, unlikely caused by muscle breakdown. elevated levels of protein on U/A, will do further workup to identify etiology - Will most likely require renal biopsy tomorrow. Will need to stop heparin 2 hours prior, and do not start any anti-coagulation at this time. - urine specific gravity is 1.024, give fluids - JF, completment, HIV, ASO, antiGBN, ANCA - pending - continue to trend Cr - avoid nephrotoxins - ordered vanc levels Qualifiers: Renal failure chronicity: unspecified chronicity Qualified Code(s): N19 - Unspecified kidney failure Subjective Principal diagnosis: renal failure Interval history: Mr Mcgowan is a 42 yo M w/ pmh of DVT not on anticoag, HTN, smoker, MJ user continues to have shortness of breath at rest. Renal was consulted for SCr 6.37 , GFR 10, BP's in 200's. Patient states his breathing has drastically improved since yesterday. Patient continues to deny fever, chills, chest pain. Objective - Vital Signs Vital signs: Vital Signs Temp Pulse Resp BP Pulse Ox 01/20/18 11:18 97.3 F L 79 18 128/78 97 01/20/18 06:55 97.1 F L 81 18 126/78 98 01/20/18 04:18 98.1 F 77 16 127/80 96 01/19/18 23:36 97.8 F 73 18 133/83 98 01/19/18 22:05 98 01/19/18 20:34 97.8 F 82 16 130/85 97 01/19/18 15:15 97.4 F L 81 17 124/82 98 Intake and Output 01/19/18 01/20/18 01/20/18 23:59 07:59 15:59 Intake Total 190 / 190 680 / 680 240 / 240 Output Total 450 / 450 Balance -260 / -260 680 / 680 240 / 240 Intake: IV Fluids 680 / 680 Heparin 25,000 UNIT/500 ML D5W 680 / 680 25,000 unit In 500 ml @ 14 UNIT /KG/HR 22.861 mls/hr IVC . [id number] [facility] Rx#:[id number] Maxipime 1,000 MG In Water for inj. (sterile) 10 ML @ 150 mls/ hr IVP Q12HR [facility] Rx#:[id number] Oral 180 / 180 240 / 240 Output: Catheter 450 / 450 Other: Meal Dinner Breakfast Percent of Meal Consumed 50% 50% Weight 75.2 kg Patient Weight 01/20/18 23:59 Weight 75.2 kg - General Appearance General appearance: Present: well-developed, well-nourished, appears started age EENT: Present: mucous membranes moist Respiratory: Present: clear Cardiology: Present: no murmurs, no rub, no gallops, no edema, regular rate, regular rhythm, normal S1, normal S2 Gastrointestinal: Present: hypoactive bowel sounds, no tenderness Neurologic: Present: no focal deficit, no asterixis, alert and oriented x3, strength 5/5 - Lab 01/20/18 05:32 01/20/18 05:32 Most recent lab results Calcium 9.1 mg/dL (8.6-10.3) 01/20/18 05:32 Magnesium 2.2 mg/dL (1.6-2.6) 01/20/18 05:32 Urine Creatinine 132 mg/dL 01/20/18 00:55 Urine Sodium 45.7 mEq/L 01/20/18 00:55 Urine Total Protein 183 mg/dL (1-14) H 01/20/18 00:55 - VTE Reasons for not Prescribing Prophylaxis: Not indicated-Anticoagulated or INR therapeutic Consult Discharge Plan - Plan Instructions: Acute Kidney Injury (DC), Hemodialysis (DC) Referrals: [facility] [Outside] (request sent for a new patient hospital follow up on 01/26/18. Phones not working) Gely Steel MD [Partnered Physician] - (1-2 weeks patient will see the physician to HD clinic) Prescriptions: amLODIPine [Norvasc] 10 mg PO DAILY #30 tablet Carvedilol [Coreg] 12.5 mg PO BIDWM #60 tablet cloNIDine HCl [CloNIDine HCl] 0.1 mg PO TID #90 tablet Hydralazine HCl 100 mg PO TID #90 tablet <Gely Steel - Last Filed: 02/14/18 22:57> Date of Encounter: 01/20/18 - Assessment and Plan (1) Renal failure Status: Deleted Qualifiers: Renal failure chronicity: unspecified chronicity Qualified Code(s): N19 - Unspecified kidney failure (2) Hypertensive urgency Status: Acute (3) PNA (pneumonia) Status: Acute Qualifiers: Pneumonia type: due to unspecified organism Laterality: left Lung location: lower lobe of lung Qualified Code(s): J18.1 - Lobar pneumonia, unspecified organism Objective - Lab 01/27/18 04:11 01/27/18 04:11 Most recent lab results Calcium 9.3 mg/dL (8.6-10.3) 01/27/18 04:11 Magnesium 2.1 mg/dL (1.6-2.6) 01/27/18 04:11 Urine Creatinine 132 mg/dL 01/20/18 00:55 Urine Sodium 45.7 mEq/L 01/20/18 00:55 Urine Total Protein 183 mg/dL (1-14) H 01/20/18 00:55 - Attending Attestation I examined this patient and my medical decision-making was reviewed with the Resident Physician. I agree with the documented findings, disposition and treatment plan as described except to the extent set forth below. Pt seen and examined with improved breathing in general. PE confirms with improved areation. Scr showes no improvement despite continued IVF. CPK WNL and uric acid elevated. The rest of workup still pending. Will discuss renal biopsy with patient and proceed if willing for definitely diagnosis of renal dysfunction as well as the odds of recovery. continue to avoid nephrotoxins if possible.
[2018-01-20] MEDS ORDERED: Levofloxacin 500 MG/100 ML 500 MG/100 ML BAG IVPB SCH (12:00)
[2018-01-20] MEDS: *HR* OxyCODONE/APAP 5/325 TABLET PO PRN (12:37)
[2018-01-20] MEDS: 0.9 % Sodium Chloride 1,000 ML IVC SCH ×2 (12:37→21:32)
[2018-01-20 13:45] LABS: Hepatitis B Surface Antibody 0.08 mIU/mL; Hepatitis B Surface Antigen Nonreactive (Nonreactive)
--- NOTE | 2018-01-20 15:33 | Internal Med Progress Note ---
Date of Encounter: 01/20/18 Time of Encounter: 10:50 - Assessment and plan (1) RAUDEL (acute kidney injury) Current Visit: Yes Status: Acute Assessment and plan: Seems to be he does have acute kidney injury with chronic kidney disease he was admitted at [facility] in November at the time they did mention that patient had chronic kidney disease and may need hemodialysis in a couple of years Reviewed his medical records from [facility] His Cr 07/26- 1.9, 11/07/17 - 3.9 11/08/17 - 3.8, 11/09/17 - 4.5 When he was recently admitted in November he did have possible embolic CVA, Influenza A bronchitis. Did not see discharge summary..will request for that currently patient is nonoliguric has good urine output so far his renal ultrasound came back as benign Talked to nephro - possible renal biopsy in AM cont IV hydration - Aware of his systolic CHF (2) Acute respiratory failure with hypoxia Current Visit: Yes Status: Acute Assessment and plan: With pneumonia and COPD exacerbation cont empirical abx Levaquin and Cefepime cont Duoneb step pneumonia, Legionella are negative sputum culture and respiratory viral panel - P (3) PNA (pneumonia) Current Visit: Yes Status: Acute Assessment and plan: Mostly bacterial continue broad spec abx Cefepime and Levaquin Qualifiers: Pneumonia type: due to unspecified organism Laterality: left Lung location: lower lobe of lung Qualified Code(s): J18.1 - Lobar pneumonia, unspecified organism (4) D-dimer, elevated Current Visit: Yes Status: Acute Assessment and plan: With a past history of DVT high-risk for PE his VQ scan showed low probability for PE patient does not need any anticoagulation d/c Heparin today (5) Elevated troponin Current Visit: Yes Status: Acute Assessment and plan: Slightly elevated troponin mostly demand ischemia + due to RAUDEL d/c heparin troponin trended down Reviewed echocardiogram showed severe LVH and Systolic dysfunction with LVEF 45% (6) Systolic CHF, chronic Current Visit: Yes Status: Acute Assessment and plan: Reviewed 2 D Echo showed LVEF 45-50% not in exacerbation ASA + Statin + BB (7) H/O deep venous thrombosis Current Visit: Yes Status: Acute (8) Hypertensive urgency Current Visit: Yes Status: Acute Assessment and plan: improved and stable with current regimen changed Clonidine to 0.1mg TID cont Norvasc added Coreg 6.25 BID (9) Substance abuse Current Visit: Yes Status: Acute Assessment and plan: counseled to quit he does smoke Marijuana regularly his UDS showed ampethamines (10) Tobacco dependence Current Visit: Yes Status: Acute Assessment and plan: counseled to quit - Subjective Interval history: Mr. Schmid is a 42-year-old male who presented to the ED with shortness of breath and bilateral rib pain 1 month. Denies cough, fever, chills. Patient was diagnosed with pneumonia in November. States that since this, he has felt constant shortness of breath and bilateral lower rib pain. Had a previous DVT in March 2017; not currently on any anti coag. Upon arrival, patient had an elevated blood pressure 215/162. Patient was tachycardic at 10 3 bpm, respiratory rate was 24. D-dimer was noted to be elevated at 3136, troponin is elevated at 0.15, creatinine is 6.5. Chest x-ray demonstrated left basilar opacification with mild pleural effusion suggesting pneumonia with parapneumonic effusion. Pt was admitted in the hospital and started him broad spec abx and heparin gtt. Pt states he feels little better today and his b/l rib pain also better. Denied any CP . No fever. Tolerating PO intake well. - Constitutional Vitals: Temp Pulse Resp BP Pulse Ox 97.3 F L 79 18 128/78 97 01/20/18 11:18 01/20/18 11:18 01/20/18 11:18 01/20/18 11:18 01/20/18 11:18 General appearance: Present: mild distress, A&O X 3, answers questions appropriately - Head Head exam: Present: atraumatic, normal inspection - Neck Neck exam general surgery: Present: supple - Respiratory Respiratory exam: Present: decreased breath sounds, rhonchi (mild), wheezes ( mild). Absent: rales, respiratory distress - Cardiovascular Cardiovascular exam: Present: RRR, +S1, +S2. Absent: tachycardia - GI/Abdominal GI/Abdominal exam: Present: normal bowel sounds, soft. Absent: rebound, rigid, tenderness - Extremities Exam Extremities exam: Absent: calf tenderness, pedal edema, tenderness - Back Exam Back exam: Absent: CVA tenderness (L), CVA tenderness (R) - Neurological Exam Neurological exam: Present: alert, oriented X3 - Psychiatric Psychiatric exam: Present: depressed - Skin Skin exam: Absent: rash Internal Medicine: Result - Labs CBC & Chem 7: 01/20/18 05:32 01/20/18 05:32 Labs: Short CBC 01/20/18 Range/Units 05:32 WBC 7.1 (4.3-11.1) K/mcL Hgb 8.4 L (12.9-16.9) g/dL Hct 25.8 L (37.5-50.1) % Plt Count 176 (140-400) K/mcL Neutrophils # 5.0 (1.6-8.9) K/mcL BMP 01/20/18 05:32 Sodium 138 Potassium 3.1 L Chloride 107 Carbon Dioxide 18 L BUN 57 H Creatinine 6.56 H Glucose 130 H Calcium 9.1 - ABG Interpretation ABG results: PT/INR, D-dimer PT 14.6 Seconds (9.4-12.1) H 01/18/18 09:00 D-Dimer 3106 ng/mLFEU (0-500) H 01/18/18 09:00 - Impressions Impressions Echocardiogram 01/19/18 14:52 Impressions: LVEF 45-50%. Low normal to mildly reduced LV systolic function. Mildly dilated left ventricle. Severe concentric left ventricular hypertrophy. Moderate left ventricular diastolic dysfunction. Normal right ventricular structure and function. Moderate mitral regurgitation. Mild tricuspid regurgitation. Mild pulmonary hypertension. Estimated RVSP is 40 mmHg. Pleural effusion noted. Left Ventricular Wall Motion: Rest Echo Findings The apex, apical inferior, mid inferior, basal inferior, apical anterior, mid anterior, basal anterior, apical septal, mid inferior septal, basal inferior septal, apical lateral, mid anterior lateral, basal anterior lateral, mid anterior septal, mid inferior lateral, basal anterior septal and basal inferior lateral bolanos were hypokinetic. Findings: Study Quality * Technically adequate exam. ECG Findings * Normal sinus rhythm. Left Ventricle * LVEF 45-50%. Low normal to mildly reduced LV systolic function. * Mildly dilated left ventricle. * Severe concentric left ventricular hypertrophy. * Moderate left ventricular diastolic dysfunction. Right Ventricle * Normal right ventricular structure and function. Left Atrium * Moderately dilated left atrium. Right Atrium * Moderately dilated right atrium. Interatrial Septum * Interatrial septum not well evaluated. Aortic Valve * Trileaflet aortic valve. * Trace aortic regurgitation. * No aortic stenosis. Mitral Valve * Normal mitral valve structure. * Moderate mitral regurgitation. * No mitral stenosis. Tricuspid Valve * Normal tricuspid valve structure. * Mild tricuspid regurgitation. * Mild pulmonary hypertension. * Estimated RVSP is 40 mmHg. * Estimated RA pressure is 5 mmHg. Pulmonic Valve * Normal pulmonic valve structure and function. * No pulmonic regurgitation. Aorta * Normally sized aortic root. Pericardium * The pericardium appears normal. IVC * Normal IVC dimensions and inspiratory collapse. Pleural Effusion * Pleural effusion noted. Pulmonary Artery * Normal visualized portions of the main pulmonary artery. - VTE Reasons for not Prescribing Prophylaxis: Not indicated-Anticoagulated or INR therapeutic Consult Discharge Plan - Plan Referrals: NONE,PCP [Primary Care Provider] -
[2018-01-20] MEDS: *HR* Heparin 5,000 UNIT/ML VIAL SQ SCH (17:20)
[2018-01-21] MEDS: *HR* OxyCODONE/APAP 5/325 TABLET PO PRN ×4 (02:47→20:07)
[2018-01-21 04:17] LABS: Basophils % 0.5 %; Eosinophils # 0.3 K/mcL (0.0-0.6); Hematocrit 26.1 % (37.5-50.1); Hemoglobin 8.4 g/dL (12.9-16.9); Immature Granulocytes % 0.2 % (0-4); Lymphocytes # 1.1 K/mcL (0.6-4.6); Lymphocytes % 18.4 %; Mean Corpuscular HGB Conc 32.2 g/dL (31.6-35.5); Mean Corpuscular Hemoglobin 27.7 pg (28.0-33.3); Mean Corpuscular Volume 86.1 fL (83.0-100.0); Mean Platelet Volume 10.3 fL (9.4-12.4); Monocytes # 0.4 K/mcL (0.0-1.3); Monocytes % 6.8 %; Neutrophils # 3.9 K/mcL (1.6-8.9); Platelet Count 184 K/mcL (140-400); Red Blood Count 3.03 M/mcL (4.19-5.50); Red Cell Distribution Width 15.4 % (11.5-14.5); Segmented Neutrophils % 68.1 %
[2018-01-21 04:42] LABS: Calcium 8.8 mg/dL (8.6-10.3); Potassium 3.5 mEq/L (3.5-5.1)
[2018-01-21] MEDS: *HR* Heparin 5,000 UNIT/ML VIAL SQ SCH ×2 (05:46→18:01)
[2018-01-21] MEDS: Cefepime HCl 1,000 MG in Water for inj. (sterile) 20 ML 10 ML IVP SCH (05:47)
[2018-01-21] MEDS: cloNIDine HCl 0.1 MG TABLET PO SCH ×3 (07:15→20:07)
[2018-01-21] MEDS: hydrALAZINE 25 MG TABLET PO SCH ×3 (07:15→20:08)
[2018-01-21] MEDS: amLODIPine 5 MG TABLET PO SCH (07:15)
[2018-01-21] MEDS: *HR* LORazepam 1 MG TABLET PO PRN ×2 (07:18→20:07)
[2018-01-21 08:12] LABS: Complement Component 3 103 mg/dL (88-201); Complement Component 4 26 mg/dL (10-40)
[2018-01-21 08:14] LABS: Myeloperoxidase Ab 0 AU/mL (0-19); Serine Protease-3 Antibody 0 AU/mL (0-19)
[2018-01-21] MEDS ORDERED: *HR* Midazolam HCl 2 MG/2 ML VIAL IVP ONE (12:42)
[2018-01-21] MEDS ORDERED: *HR* FentaNYL (PF) 100 MCG/2 ML VIAL IVP ONE (12:42)
[2018-01-21 13:35] LABS: ANA IgG by ELISA NONE DETECTED (None Detected)
--- NOTE | 2018-01-21 13:43 | IR Procedure Note ---
Date of procedure: 01/21/18 Consent Obtained: Verbal consent, Written consent Timeout: Correct patient and procedure verified, Correct site verified, Time out performed, Skin prep completed Local anesthetic: Lidocaine 1% Indications: Renal failure Procedure Performed: Renal biopsy Was there an chiropractor assistant present: No Site/Technique: Ct guided random kidney biopsy Results/Findings: 4 28 gauge biopsies obtained from right kidney Estimated blood loss (cc): 5 Complications: None; Tolerated procedure well Post Procedure Treatment Plan: Bedrest x2 hours Specimen: 4 18 gauge biopsies
--- NOTE | 2018-01-21 17:24 | Internal Med Progress Note ---
Date of Encounter: 01/21/18 Time of Encounter: 17:22 - Assessment and plan (1) RAUDEL (acute kidney injury) Current Visit: Yes Status: Acute Assessment and plan: Seems to be he does have acute kidney injury with chronic kidney disease he was admitted at [facility] in November at the time they did mention that patient had chronic kidney disease and may need hemodialysis in a couple of years Reviewed his medical records from [facility] His Cr 07/26- 1.9, 11/07/17 - 3.9 11/08/17 - 3.8, 11/09/17 - 4.5 When he was recently admitted in November he did have possible embolic CVA, Influenza A bronchitis. Did not see discharge summary..will request for that currently patient is nonoliguric his renal ultrasound came back as benign Had renal biopsy today d/c IVF.. his RAUDEL does not seem to be pre renal Pt is getting volume overload too Talked to nephrology.. planning starting HD during this hospitalization scheduled for perm HD cath today (2) Acute respiratory failure with hypoxia Current Visit: Yes Status: Acute Assessment and plan: With pneumonia and COPD exacerbation cont empirical abx Levaquin and Cefepime cont Duoneb step pneumonia, Legionella are negative sputum culture and respiratory viral panel - P (3) PNA (pneumonia) Current Visit: Yes Status: Acute Assessment and plan: Mostly bacterial continue broad spec abx Cefepime and Levaquin Qualifiers: Pneumonia type: due to unspecified organism Laterality: left Lung location: lower lobe of lung Qualified Code(s): J18.1 - Lobar pneumonia, unspecified organism (4) D-dimer, elevated Current Visit: Yes Status: Acute Assessment and plan: With a past history of DVT high-risk for PE his VQ scan showed low probability for PE patient does not need any anticoagulation (5) Elevated troponin Current Visit: Yes Status: Acute Assessment and plan: Slightly elevated troponin mostly demand ischemia + due to RAUDEL d/c heparin troponin trended down Reviewed echocardiogram showed severe LVH and Systolic dysfunction with LVEF 45% (6) Systolic CHF, chronic Current Visit: Yes Status: Acute Assessment and plan: Reviewed 2 D Echo showed LVEF 45-50% not in exacerbation ASA + Statin + BB (7) H/O deep venous thrombosis Current Visit: Yes Status: Acute (8) Hypertensive urgency Current Visit: Yes Status: Acute Assessment and plan: improved and stable with current regimen changed Clonidine to 0.1mg TID cont Norvasc Coreg 6.25 BID (9) Substance abuse Current Visit: Yes Status: Acute Assessment and plan: counseled to quit he does smoke Marijuana regularly his UDS showed ampethamines (10) Tobacco dependence Current Visit: Yes Status: Acute Assessment and plan: counseled to quit - Subjective Interval history: Mr. Schmid is a 42-year-old male who presented to the ED with shortness of breath and bilateral rib pain 1 month. Denies cough, fever, chills. Patient was diagnosed with pneumonia in November. States that since this, he has felt constant shortness of breath and bilateral lower rib pain. Had a previous DVT in March 2017; not currently on any anti coag. Upon arrival, patient had an elevated blood pressure 215/162. Patient was tachycardic at 10 3 bpm, respiratory rate was 24. D-dimer was noted to be elevated at 3136, troponin is elevated at 0.15, creatinine is 6.5. Chest x-ray demonstrated left basilar opacification with mild pleural effusion suggesting pneumonia with parapneumonic effusion. Pt was admitted in the hospital and started him broad spec abx and heparin gtt. Pt states he feels little better today and his b/l rib pain also better. Denied any CP . No fever. Tolerating PO intake well. No events over night - Constitutional Vitals: Temp Pulse Resp BP Pulse Ox 97.7 F 81 18 125/88 96 01/21/18 15:34 01/21/18 15:34 01/21/18 15:34 01/21/18 15:34 01/21/18 15:34 General appearance: Present: A&O X 3, answers questions appropriately - Head Head exam: Present: atraumatic, normal inspection - Neck Neck exam general surgery: Present: supple - Respiratory Respiratory exam: Present: decreased breath sounds. Absent: rales, respiratory distress, rhonchi, wheezes - Cardiovascular Cardiovascular exam: Present: RRR, +S1, +S2. Absent: tachycardia - GI/Abdominal GI/Abdominal exam: Present: normal bowel sounds, soft. Absent: rebound, rigid, tenderness - Extremities Exam Extremities exam: Absent: calf tenderness, pedal edema, tenderness - Back Exam Back exam: Absent: CVA tenderness (L), CVA tenderness (R) - Neurological Exam Neurological exam: Present: alert, oriented X3 - Psychiatric Psychiatric exam: Present: normal affect, normal mood Internal Medicine: Result - Labs CBC & Chem 7: 01/21/18 03:45 01/21/18 03:45 Labs: Short CBC 01/21/18 Range/Units 03:45 WBC 5.7 (4.3-11.1) K/mcL Hgb 8.4 L (12.9-16.9) g/dL Hct 26.1 L (37.5-50.1) % Plt Count 184 (140-400) K/mcL Neutrophils # 3.9 (1.6-8.9) K/mcL BMP 01/21/18 03:45 Sodium 139 Potassium 3.5 Chloride 110 H Carbon Dioxide 15 L BUN 55 H Creatinine 6.54 H Glucose 115 H Calcium 8.8 - ABG Interpretation ABG results: PT/INR, D-dimer PT 14.6 Seconds (9.4-12.1) H 01/18/18 09:00 D-Dimer 3106 ng/mLFEU (0-500) H 01/18/18 09:00 - Impressions Impressions Renal Biopsy CT 01/21/18 00:00 IMPRESSION: Successful CT guided random kidney core needle biopsy D/ / Newton Marie MD / Newton Marie MD Interpreting Provider: Newton Marie MD - VTE Reasons for not Prescribing Prophylaxis: Not indicated-Anticoagulated or INR therapeutic Consult Discharge Plan - Plan Referrals: NONE,PCP [Primary Care Provider] -
--- NOTE | 2018-01-21 17:45 | Nephrology Progress Note ---
Date of Encounter: 01/21/18 Time of Encounter: 13:00 - Assessment and Plan (1) Renal failure Current Visit: Yes Status: Deleted SCr still showing no signs of improvement. Of note SCr in [facility] was in the 4.0s suggesting at least RAUDEL/ATN since then vs CKD Will await renal biospy results Discussed at great lengths poor renal function and the need for HD if no improvement now. [facility] aide to arrange outpatient HD as well in [place] Continue to avoid nephrotoxins if possible To date JF, C3, C4, ANCA and RF WNL Urine shows subnephrotic protein at 1.4grams ASO titer, antiGBM and HIV pending Qualifiers: Renal failure chronicity: unspecified chronicity Qualified Code(s): N19 - Unspecified kidney failure (2) Hypertensive urgency Current Visit: Yes Status: Acute Stable on current regimen, will continue (3) PNA (pneumonia) Current Visit: Yes Status: Acute Continue abx per primary team Qualifiers: Pneumonia type: due to unspecified organism Laterality: left Lung location: lower lobe of lung Qualified Code(s): J18.1 - Lobar pneumonia, unspecified organism Subjective Principal diagnosis: renal failure Interval history: Pt seen and examined s/p renal biospy today with no complications. He reports breathing continues to improve but still has some rib pains. Objective - Vital Signs Vital signs: Vital Signs Temp Pulse Resp BP Pulse Ox 01/21/18 15:34 97.7 F 81 18 125/88 96 01/21/18 13:21 80 18 134/96 95 01/21/18 13:17 86 18 124/96 96 01/21/18 13:12 80 16 138/111 95 01/21/18 13:09 83 19 134/95 95 01/21/18 13:03 82 25 133/107 96 01/21/18 12:08 97.3 F L 78 20 129/92 96 01/21/18 07:21 97 01/21/18 07:17 97.7 F 80 18 126/92 96 01/21/18 04:20 97.7 F 77 17 125/81 97 01/21/18 00:38 97.6 F 74 18 120/83 98 Intake and Output 01/21/18 01/21/18 01/21/18 07:59 15:59 23:59 Output Total 250 / 250 300 / 300 Balance -250 / -250 -300 / -300 Output: Urine 300 / 300 Catheter 250 / 250 Other: Weight 75.2 kg Patient Weight 01/21/18 23:59 Weight 75.2 kg - General Appearance General appearance: Present: well-developed, well-nourished EENT: Present: ATNC, mucous membranes moist Neck: Present: no JVD, supple Respiratory: Present: clear Cardiology: Present: no edema, normal S1, normal S2 Gastrointestinal: Present: no tenderness, no guarding Integumentary: Present: warm and dry Neurologic: Present: no focal deficit Musculoskeletal: Present: no deformities Psychiatric: Present: mood/affect appropriate - Lab 01/21/18 03:45 01/21/18 03:45 Most recent lab results Calcium 8.8 mg/dL (8.6-10.3) 01/21/18 03:45 Magnesium 2.0 mg/dL (1.6-2.6) 01/21/18 03:45 Urine Creatinine 132 mg/dL 01/20/18 00:55 Urine Sodium 45.7 mEq/L 01/20/18 00:55 Urine Total Protein 183 mg/dL (1-14) H 01/20/18 00:55 - VTE Reasons for not Prescribing Prophylaxis: Not indicated-Anticoagulated or INR therapeutic Consult Discharge Plan - Plan Referrals: NONE,PCP [Primary Care Provider] -
[2018-01-22 01:37] LABS: HIV-1 Ab Supplemental NEGATIVE (Negative); HIV-2 Ab Supplemental NEGATIVE (Negative)
[2018-01-22 04:03] LABS: Basophils % 0.6 %; Eosinophils # 0.5 K/mcL (0.0-0.6); Eosinophils % 8.2 %; Hematocrit 27.5 % (37.5-50.1); Hemoglobin 8.9 g/dL (12.9-16.9); Immature Granulocytes % 0.5 % (0-4); Lymphocytes # 1.3 K/mcL (0.6-4.6); Lymphocytes % 19.9 %; Mean Corpuscular HGB Conc 32.4 g/dL (31.6-35.5); Mean Corpuscular Hemoglobin 28.3 pg (28.0-33.3); Mean Corpuscular Volume 87.3 fL (83.0-100.0); Mean Platelet Volume 10.3 fL (9.4-12.4); Monocytes # 0.4 K/mcL (0.0-1.3); Monocytes % 6.6 %; Neutrophils # 4.1 K/mcL (1.6-8.9); Platelet Count 205 K/mcL (140-400); Red Blood Count 3.15 M/mcL (4.19-5.50); Red Cell Distribution Width 15.5 % (11.5-14.5); Segmented Neutrophils % 64.2 %
[2018-01-22] MEDS: *HR* OxyCODONE/APAP 10/325 TABLET PO PRN ×3 (04:03→21:33)
[2018-01-22] MEDS: *HR* LORazepam 1 MG TABLET PO PRN ×2 (04:03→13:20)
[2018-01-22 04:17] LABS: Calcium 8.9 mg/dL (8.6-10.3); Magnesium 2.2 mg/dL (1.6-2.6); Potassium 3.6 mEq/L (3.5-5.1)
[2018-01-22] MEDS: Cefepime HCl 1,000 MG in Water for inj. (sterile) 20 ML 10 ML IVP SCH (06:15)
[2018-01-22] MEDS: *HR* Heparin 5,000 UNIT/ML VIAL SQ SCH ×2 (06:15→17:18)
[2018-01-22] MEDS ORDERED: *HR* FentaNYL (PF) 100 MCG/2 ML VIAL IVP ONE (07:49)
[2018-01-22] MEDS ORDERED: *HR* Midazolam HCl 2 MG/2 ML VIAL IVP ONE (07:49)
[2018-01-22] MEDS ORDERED: 0.9 % Sodium Chloride 500 ML ONE (07:56)
[2018-01-22] MEDS ORDERED: Heparin 1,000 UNITS/500 mL 500 ML ONE (07:59)
[2018-01-22] MEDS ORDERED: *HR* Heparin 10,000 UNIT/10 ML VIAL IV PRN ×2 (08:01→11:12)
[2018-01-22] MEDS ORDERED: 0.9 % Sodium Chloride 250 ML IVC PRN (08:01)
[2018-01-22] MEDS ORDERED: 0.9 % Sodium Chloride 1,000 ML PRIME SCH (08:15)
--- NOTE | 2018-01-22 08:29 | Nephrology Progress Note ---
Date of Encounter: 01/22/18 Time of Encounter: 08:27 - Assessment and Plan (1) RAUDEL (acute kidney injury) Current Visit: Yes Status: Acute s/p renal biopsy yesterday and was arranged for HD today by my colleague: I reviewed her sign-out/hand-off notes. HD orders are in place for today, and will plan for a back to back HD treatment tomorrow for clearance. I counseled him for >50% of the encounter about his freshly placed HD catheter, and I updated the floor RN about holding diuretics/antihypertensive meds until after HD. Will await the results of the renal biopsy: if there is an active GN, then he may need to start IV pulse dose steroids and/or cytoxan vs rituxan. Will await the results of the renal biopsy that I confirmed was sent yesterday. Addendum: I also later in the day checked in on him during his first HD treatment, during which he had stable vitals, no reported cramping and his initial blood flows were on target. (2) Anemia Current Visit: Yes Status: Acute Follow Hgb. As long as he is not loosing blood, the target Hgb is 10-11 in renal disease. He may need IV iron and/or GLORIA at some point. Qualifiers: Qualified Code(s): D64.9 - Anemia, unspecified (3) H/O deep venous thrombosis Current Visit: Yes Status: Chronic Hx of DVT. His GN work up to date has not suggested vasculitis or lupus nephritis. I will add Anti-PLA2R which is serum test for Membranous nephropathy , which is of all the GNs the type that could lead to VTEs. (4) Hypertensive urgency Current Visit: Yes Status: Acute Trending better. See above. Subjective Principal diagnosis: renal failure Interval history: Pt was s/e this AM. He did not affirm N/V/D. We talked about his freshly placed HD catheter, and I updated the floor RN about holding diuretics/ antihypertensive meds until after HD. Objective - Vital Signs Vital signs: Vital Signs Temp Pulse Resp BP Pulse Ox 01/22/18 08:24 85 14 143/100 100 01/22/18 08:16 82 23 139/98 97 01/22/18 07:39 97.4 F L 91 18 139/88 97 01/22/18 04:34 98.1 F 76 16 131/89 98 01/22/18 01:07 97.9 F 89 16 115/88 96 01/21/18 20:53 98.1 F 84 17 127/90 96 01/21/18 15:34 97.7 F 81 18 125/88 96 01/21/18 13:21 80 18 134/96 95 01/21/18 13:17 86 18 124/96 96 01/21/18 13:12 80 16 138/111 95 01/21/18 13:09 83 19 134/95 95 01/21/18 13:03 82 25 133/107 96 01/21/18 12:08 97.3 F L 78 20 129/92 96 Intake and Output 01/21/18 01/22/18 01/22/18 23:59 07:59 15:59 Intake Total 600 / 600 Output Total 500 / 500 450 / 450 Balance 100 / 100 -450 / -450 Intake: Oral 600 / 600 Output: Urine 500 / 500 Catheter 450 / 450 Other: Weight 87.572 kg Patient Weight 01/22/18 23:59 Weight 87.572 kg - General Appearance General appearance: Present: well-developed, well-nourished, appears started age EENT: Present: ATNC, PERRL, mucous membranes moist Neck: Present: supple Respiratory: Present: clear Cardiology: Present: no edema, regular rate, regular rhythm, normal S1, normal S2 Dialysis Vascular Access: Venous Catheter (Right Permacath was C/D/I) Gastrointestinal: Present: normoactive bowel sounds, no tenderness, no guarding Integumentary: Present: no rash, warm and dry Additional Comments: His shins did not demonstrate any vasculitis like rashes Neurologic: Present: no focal deficit, no asterixis, alert and oriented x3 Musculoskeletal: Present: no deformities, no erythema, no cyanosis Psychiatric: Present: mood/affect appropriate, cooperative - Lab 01/22/18 03:28 01/22/18 03:28 Most recent lab results Calcium 8.9 mg/dL (8.6-10.3) 01/22/18 03:28 Magnesium 2.2 mg/dL (1.6-2.6) 01/22/18 03:28 Urine Creatinine 132 mg/dL 01/20/18 00:55 Urine Sodium 45.7 mEq/L 01/20/18 00:55 Urine Total Protein 183 mg/dL (1-14) H 01/20/18 00:55 - VTE Reasons for not Prescribing Prophylaxis: Not indicated-Anticoagulated or INR therapeutic Consult Discharge Plan - Plan Referrals: NONE,PCP [Primary Care Provider] -
[2018-01-22] MEDS ORDERED: *HR* Heparin 5,000 UNIT/ML VIAL ONE (08:30)
--- NOTE | 2018-01-22 08:38 | IR Procedure Note ---
Date of procedure: 01/22/18 Consent Obtained: Written consent Timeout: Correct patient and procedure verified, Correct site verified, Time out performed, Skin prep completed Local anesthetic: Lidocaine 1% Indications: Renal insufficiency, tunneled HD catheter requested. Procedure Performed: Tunneled HD catheter placement Was there an assistant center director present: No Site/Technique: RIJV used for access Results/Findings: Working well. Ok to use. Tip in R atrium. Estimated blood loss (cc): 1 Complications: None; Tolerated procedure well Post Procedure Treatment Plan: Monitoring in pts room. Specimen: N/a
[2018-01-22] MEDS: hydrALAZINE 25 MG TABLET PO SCH ×3 (10:19→19:58)
[2018-01-22] MEDS: *HR* OxyCODONE/APAP 5/325 TABLET PO PRN (10:19)
[2018-01-22] MEDS: cloNIDine HCl 0.1 MG TABLET PO SCH ×3 (10:19→19:59)
[2018-01-22] MEDS: Aspirin Enteric Coated 81 MG Tablet PO SCH (10:25)
[2018-01-22] MEDS ORDERED: 0.9 % Sodium Chloride 1,000 ML ONE (11:06)
[2018-01-22] MEDS: levoFLOXacin 500 MG TABLET PO SCH (13:20)
[2018-01-22] MEDS: amLODIPine 5 MG TABLET PO SCH (13:20)
--- NOTE | 2018-01-22 13:39 | Internal Med Progress Note ---
Date of Encounter: 01/22/18 Time of Encounter: 13:35 - Assessment and plan (1) RAUDEL (acute kidney injury) Current Visit: Yes Status: Acute Assessment and plan: Seems to be he does have acute kidney injury with chronic kidney disease stage 4 he was admitted at [facility] in November at the time they did mention that patient had chronic kidney disease and may need hemodialysis in a couple of years Reviewed his medical records from [facility] His Cr 07/26- 1.9, 11/07/17 - 3.9 11/08/17 - 3.8, 11/09/17 - 4.5 When he was recently admitted in November he did have possible embolic CVA, Influenza A bronchitis. currently patient is nonoliguric his renal ultrasound came back as benign Had renal biopsy on 01/21/18 d/c IVF.. his RAUDEL does not seem to be pre renal Had HD cath placed today his Cr keep going up Just had HD today May need daily HD for few days.. will check with Nephro (2) Acute respiratory failure with hypoxia Current Visit: Yes Status: Acute Assessment and plan: With pneumonia and COPD exacerbation cont empirical abx Levaquin cont Duoneb step pneumonia, Legionella are negative sputum culture and respiratory viral panel - P (3) PNA (pneumonia) Current Visit: Yes Status: Acute Assessment and plan: Mostly bacterial continue Levaquin d/c Cefepime Qualifiers: Pneumonia type: due to unspecified organism Laterality: left Lung location: lower lobe of lung Qualified Code(s): J18.1 - Lobar pneumonia, unspecified organism (4) D-dimer, elevated Current Visit: Yes Status: Acute Assessment and plan: With a past history of DVT high-risk for PE his VQ scan showed low probability for PE patient does not need any anticoagulation (5) Elevated troponin Current Visit: Yes Status: Acute Assessment and plan: Slightly elevated troponin mostly demand ischemia + due to RAUDEL troponin trended down Reviewed echocardiogram showed severe LVH and Systolic dysfunction with LVEF 45% (6) Systolic CHF, chronic Current Visit: Yes Status: Acute Assessment and plan: 2 D Echo showed LVEF 45-50% not in exacerbation ASA + Statin + BB (7) H/O deep venous thrombosis Current Visit: Yes Status: Chronic Assessment and plan: Venous doppler in both legs - Negative (8) Hypertensive urgency Current Visit: Yes Status: Acute Assessment and plan: improved and stable with current regimen changed Clonidine to 0.1mg TID cont Norvasc Inc Coreg to 12.5 (9) Substance abuse Current Visit: Yes Status: Acute Assessment and plan: counseled to quit he does smoke Marijuana regularly his UDS showed ampethamines (10) Tobacco dependence Current Visit: Yes Status: Acute Assessment and plan: counseled to quit - Subjective Interval history: Mr. Schmid is a 42-year-old male who presented to the ED with shortness of breath and bilateral rib pain 1 month. Denies cough, fever, chills. Patient was diagnosed with pneumonia in November. States that since this, he has felt constant shortness of breath and bilateral lower rib pain. Had a previous DVT in March 2017; not currently on any anti coag. Upon arrival, patient had an elevated blood pressure 215/162. Patient was tachycardic at 10 3 bpm, respiratory rate was 24. D-dimer was noted to be elevated at 3136, troponin is elevated at 0.15, creatinine is 6.5. Chest x-ray demonstrated left basilar opacification with mild pleural effusion suggesting pneumonia with parapneumonic effusion. Pt was admitted in the hospital and started him broad spec abx and heparin gtt. Pt states he feels little better today and his b/l rib pain also better. Denied any CP . No fever. Tolerating PO intake well. No events over night - Constitutional Vitals: Temp Pulse Resp BP Pulse Ox 97.2 F L 85 18 147/95 100 01/22/18 13:16 01/22/18 08:27 01/22/18 13:16 01/22/18 13:16 01/22/18 08:27 General appearance: Present: A&O X 3, answers questions appropriately - Head Head exam: Present: atraumatic, normal inspection - Neck Neck exam general surgery: Present: supple - Respiratory Respiratory exam: Present: decreased breath sounds. Absent: rales, respiratory distress, rhonchi, wheezes - Cardiovascular Cardiovascular exam: Present: RRR, +S1, +S2. Absent: tachycardia - GI/Abdominal GI/Abdominal exam: Present: normal bowel sounds, soft. Absent: rebound, rigid, tenderness - Extremities Exam Extremities exam: Absent: calf tenderness, pedal edema, tenderness - Back Exam Back exam: Absent: CVA tenderness (L), CVA tenderness (R) - Neurological Exam Neurological exam: Present: alert, oriented X3, no focal deficits - Psychiatric Psychiatric exam: Present: normal affect, normal mood - Skin Skin exam: Absent: rash Internal Medicine: Result - Labs CBC & Chem 7: 01/22/18 03:28 01/22/18 03:28 Labs: Short CBC 01/22/18 Range/Units 03:28 WBC 6.4 (4.3-11.1) K/mcL Hgb 8.9 L (12.9-16.9) g/dL Hct 27.5 L (37.5-50.1) % Plt Count 205 (140-400) K/mcL Neutrophils # 4.1 (1.6-8.9) K/mcL BMP 01/22/18 03:28 Sodium 138 Potassium 3.6 Chloride 111 H Carbon Dioxide 16 L BUN 55 H Creatinine 6.69 H Glucose 128 H Calcium 8.9 - ABG Interpretation ABG results: PT/INR, D-dimer PT 14.6 Seconds (9.4-12.1) H 01/18/18 09:00 D-Dimer 3106 ng/mLFEU (0-500) H 01/18/18 09:00 - Impressions Impressions Renal Biopsy CT 01/21/18 00:00 IMPRESSION: Successful CT guided random kidney core needle biopsy D/ / Newton Marie MD / Newton Marie MD Interpreting Provider: Newton Marie MD Guidance Needle Placement Ultrasound 01/22/18 00:00 IMPRESSION: Successful ultrasound and fluoroscopy guided tunneled catheter placement . D/ / Kurt Blake MD / Kurt Blake MD Interpreting Provider: Kurt Blake MD Insertion Tunneled Catheter 01/22/18 00:00 IMPRESSION: Successful ultrasound and fluoroscopy guided tunneled catheter placement . D/ / Kurt Blake MD / Kurt Blake MD Interpreting Provider: Kurt Blake MD - VTE Reasons for not Prescribing Prophylaxis: Not indicated-Anticoagulated or INR therapeutic Consult Discharge Plan - Plan Referrals: NONE,PCP [Primary Care Provider] -
[2018-01-22] MEDS ORDERED: OXYCODONE Oral CONC 10 MG/0.5 ML ORAL.SYG SL PRN (20:59)
[2018-01-23 03:56] LABS: Basophils # 0.1 K/mcL (0.0-0.2); Basophils % 0.9 %; Eosinophils # 0.5 K/mcL (0.0-0.6); Eosinophils % 8.5 %; Hematocrit 26.6 % (37.5-50.1); Hemoglobin 8.5 g/dL (12.9-16.9); Immature Granulocytes % 0.4 % (0-4); Lymphocytes # 1.5 K/mcL (0.6-4.6); Lymphocytes % 26.8 %; Mean Corpuscular Hemoglobin 27.7 pg (28.0-33.3); Mean Corpuscular Volume 86.6 fL (83.0-100.0); Mean Platelet Volume 10.2 fL (9.4-12.4); Monocytes # 0.4 K/mcL (0.0-1.3); Monocytes % 7.2 %; Neutrophils # 3.1 K/mcL (1.6-8.9); Platelet Count 195 K/mcL (140-400); Red Blood Count 3.07 M/mcL (4.19-5.50); Segmented Neutrophils % 56.2 %
[2018-01-23 04:03] LABS: Calcium 8.7 mg/dL (8.6-10.3); Potassium 3.5 mEq/L (3.5-5.1)
[2018-01-23] MEDS: *HR* OxyCODONE/APAP 10/325 TABLET PO PRN ×3 (04:24→20:11)
[2018-01-23] MEDS: *HR* Heparin 5,000 UNIT/ML VIAL SQ SCH ×2 (04:27→16:44)
[2018-01-23] MEDS: *HR* LORazepam 1 MG TABLET PO PRN ×2 (05:11→16:47)
[2018-01-23] MEDS ORDERED: 0.9 % Sodium Chloride 250 ML IVC PRN (07:09)
--- NOTE | 2018-01-23 07:15 | Nephrology Progress Note ---
Date of Encounter: 01/23/18 Time of Encounter: 07:12 - Assessment and Plan (1) RAUDEL (acute kidney injury) Current Visit: Yes Status: Acute 2nd HD ordered for today with increasing flows and time for enhanced clearance. 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 No active immuncomplex GN so I do not recommend steroids or I/S meds such as Cytoxan. However, I do recommend checking Anti-phospholipid and Anti- Cardiolipin Ab, which I've ordered. Since he has advanced fibrosis, he has a much lower chance of renal recovery. I reviewed his home med list he he is not taking Plavix or other such meds that could potentiate a TMA process. He will need an outpt HD chair arranged, and yesterday I spoke with the SW to help arrange one. (2) Anemia Current Visit: Yes Status: Acute Follow Hgb. As long as he is not loosing blood, the target Hgb is 10-11 in renal disease. He may need IV iron and/or GLORIA at some point. Qualifiers: Qualified Code(s): D64.9 - Anemia, unspecified (3) H/O deep venous thrombosis Current Visit: Yes Status: Chronic Hx of DVT. I've added Antiphospholipid, Anticardiolipin and [id number] serum testing. Consider starting anticoagulation. (4) Hypertensive urgency Current Visit: Yes Status: Acute Trending better. See above. Subjective Principal diagnosis: renal failure Interval history: Pt was s/e this AM. He did not affirm N/V/D. He did not affirm any problems with HD such as cramping. Objective - Vital Signs Vital signs: Vital Signs Temp Pulse Resp BP Pulse Ox 01/23/18 04:18 97.9 F 78 18 121/81 95 01/23/18 01:29 98.1 F 82 16 124/83 95 01/22/18 19:26 97.9 F 78 18 108/73 95 01/22/18 15:32 99.1 F 81 16 131/87 94 01/22/18 13:16 97.2 F L 18 147/95 01/22/18 12:55 130/83 01/22/18 12:40 136/83 01/22/18 12:25 145/84 01/22/18 12:10 141/84 01/22/18 11:55 145/104 01/22/18 11:40 143/104 01/22/18 11:25 146/96 01/22/18 11:10 147/79 01/22/18 10:55 97.8 F 16 140/92 01/22/18 10:19 134/91 01/22/18 08:27 85 22 146/101 100 01/22/18 08:24 85 14 143/100 100 01/22/18 08:16 82 23 139/98 97 01/22/18 07:39 97.4 F L 91 18 139/88 97 Intake and Output 01/22/18 01/22/18 01/23/18 15:59 23:59 07:59 Intake Total 600 / 600 360 / 360 Output Total 1600 / 1600 Balance -1000 / -1000 360 / 360 Intake: Oral 0 / 0 360 / 360 Intake, Rinseback and Flushes 600 / 600 Output: Urine 0 / 0 Total Dialysis (HD) Output 1600 / 1600 Other: Meal npo Dinner Percent of Meal Consumed 5% # Voids 0 # Bowel Movements 0 Weight 83.642 kg Hemodialysis Net Fluid Removed 1000 (mL) Patient Weight 01/23/18 23:59 Weight 83.642 kg - General Appearance Exam: General appearance: Present: well-developed, well-nourished, appears started age EENT: Present: ATNC, PERRL, mucous membranes moist Neck: Present: supple Respiratory: Present: clear Cardiology: Present: no edema, regular rate, regular rhythm, normal S1, normal S2 Dialysis Vascular Access: Venous Catheter (Right Permacath was C/D/I) Gastrointestinal: Present: normoactive bowel sounds, no tenderness, no guarding Integumentary: Present: no rash, warm and dry Additional Comments: His shins did not demonstrate any vasculitis like rashes Neurologic: Present: no focal deficit, no asterixis, alert and oriented x3 Musculoskeletal: Present: no deformities, no erythema, no cyanosis Psychiatric: Present: mood/affect appropriate, cooperative - Lab 01/24/18 03:10 01/24/18 03:10 Most recent lab results Calcium 8.7 mg/dL (8.6-10.3) 01/23/18 03:29 Magnesium 2.2 mg/dL (1.6-2.6) 01/22/18 03:28 Urine Creatinine 132 mg/dL 01/20/18 00:55 Urine Sodium 45.7 mEq/L 01/20/18 00:55 Urine Total Protein 183 mg/dL (1-14) H 01/20/18 00:55 - VTE Reasons for not Prescribing Prophylaxis: Not indicated-Anticoagulated or INR therapeutic Consult Discharge Plan - Plan Referrals: NONE,PCP [Primary Care Provider] -
[2018-01-23] MEDS: Aspirin Enteric Coated 81 MG Tablet PO SCH (07:58)
[2018-01-23] MEDS ORDERED: 0.9 % Sodium Chloride 1,000 ML ONE (08:06)
[2018-01-23] MEDS: hydrALAZINE 25 MG TABLET PO SCH ×3 (13:27→20:08)
[2018-01-23] MEDS: cloNIDine HCl 0.1 MG TABLET PO SCH ×3 (13:28→20:08)
[2018-01-23] MEDS: amLODIPine 5 MG TABLET PO SCH (13:28)
--- NOTE | 2018-01-23 15:19 | Internal Med Progress Note ---
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 Did not see discharge summary..will request for that his renal ultrasound came back as benign s/p renal biopsy .. As per Dr. 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 Probably he may get benefit with buttermaker helper anticoag I will try to get more details reports from [facility] Then will decide wether he needs any anti coag mean while Nephro is continuing HD for now (2) Acute respiratory failure with hypoxia Current Visit: Yes Status: Acute Assessment and plan: With pneumonia and COPD exacerbation Improving cont empirical abx Levaquin cont Duoneb step pneumonia, Legionella are negative (3) PNA (pneumonia) Current Visit: Yes Status: Acute Assessment and plan: Mostly bacterial continue Levaquin Qualifiers: Pneumonia type: due to unspecified organism Laterality: left Lung location: lower lobe of lung Qualified Code(s): J18.1 - Lobar pneumonia, unspecified organism (4) D-dimer, elevated Current Visit: Yes Status: Acute Assessment and plan: With a past history of DVT high-risk for PE his VQ scan showed low probability for PE patient does not need any anticoagulation (5) Elevated troponin Current Visit: Yes Status: Acute Assessment and plan: Slightly elevated troponin mostly demand ischemia + due to RAUDEL troponin trended down Reviewed echocardiogram showed severe LVH and Systolic dysfunction with LVEF 45% (6) Systolic CHF, chronic Current Visit: Yes Status: Acute Assessment and plan: 2 D Echo showed LVEF 45-50% not in exacerbation ASA + Statin + BB (7) H/O deep venous thrombosis Current Visit: Yes Status: Chronic Assessment and plan: Venous doppler in both legs - Negative (8) Hypertensive urgency Current Visit: Yes Status: Acute Assessment and plan: improved and stable with current regimen changed Clonidine to 0.1mg TID cont Norvasc Inc Coreg to 12.5 (9) Substance abuse Current Visit: Yes Status: Acute Assessment and plan: counseled to quit he does smoke Marijuana regularly his UDS showed ampethamines (10) Tobacco dependence Current Visit: Yes Status: Acute Assessment and plan: counseled to quit - Subjective Interval history: Mr. Schmid is a 42-year-old male who presented to the ED with shortness of breath and bilateral rib pain 1 month. Denies cough, fever, chills. Patient was diagnosed with pneumonia in November. States that since this, he has felt constant shortness of breath and bilateral lower rib pain. Had a previous DVT in March 2017; not currently on any anti coag. Upon arrival, patient had an elevated blood pressure 215/162. Patient was tachycardic at 10 3 bpm, respiratory rate was 24. D-dimer was noted to be elevated at 3136, troponin is elevated at 0.15, creatinine is 6.5. Chest x-ray demonstrated left basilar opacification with mild pleural effusion suggesting pneumonia with parapneumonic effusion. Pt was admitted in the hospital and started him broad spec abx and heparin gtt. Pt states he feels little better today and his b/l rib pain also better. Denied any CP . No fever. Tolerating PO intake well. No events over night. Breathing comfortably on RA - Constitutional Vitals: Temp Pulse Resp BP Pulse Ox 97.3 F L 83 18 152/96 93 01/23/18 13:12 01/23/18 07:43 01/23/18 13:12 01/23/18 13:12 01/23/18 07:43 General appearance: Present: A&O X 3, answers questions appropriately - Head Head exam: Present: atraumatic, normal inspection - Neck Neck exam general surgery: Present: supple - Respiratory Respiratory exam: Present: decreased breath sounds. Absent: rales, respiratory distress, rhonchi, wheezes - Cardiovascular Cardiovascular exam: Present: RRR, +S1, +S2. Absent: tachycardia - GI/Abdominal GI/Abdominal exam: Present: normal bowel sounds, soft. Absent: rebound, rigid, tenderness - Extremities Exam Extremities exam: Absent: calf tenderness, pedal edema, tenderness - Back Exam Back exam: Absent: CVA tenderness (L), CVA tenderness (R) - Neurological Exam Neurological exam: Present: alert, oriented X3 - Psychiatric Psychiatric exam: Present: normal affect, normal mood Internal Medicine: Result - Labs CBC & Chem 7: 01/23/18 03:29 01/23/18 03:29 Labs: Short CBC 01/23/18 Range/Units 03:29 WBC 5.6 (4.3-11.1) K/mcL Hgb 8.5 L (12.9-16.9) g/dL Hct 26.6 L (37.5-50.1) % Plt Count 195 (140-400) K/mcL Neutrophils # 3.1 (1.6-8.9) K/mcL BMP 01/23/18 03:29 Sodium 139 Potassium 3.5 Chloride 109 H Carbon Dioxide 22 L BUN 38 H Creatinine 5.35 H Glucose 145 H Calcium 8.7 - ABG Interpretation ABG results: PT/INR, D-dimer PT 14.6 Seconds (9.4-12.1) H 01/18/18 09:00 D-Dimer 3106 ng/mLFEU (0-500) H 01/18/18 09:00 - VTE Reasons for not Prescribing Prophylaxis: Not indicated-Anticoagulated or INR therapeutic Consult Discharge Plan - Plan Referrals: NONE,PCP [Primary Care Provider] -
[2018-01-24] MEDS: *HR* OxyCODONE/APAP 10/325 TABLET PO PRN ×2 (03:36→15:44)
[2018-01-24 03:51] LABS: Basophils % 0.7 %; Eosinophils # 0.4 K/mcL (0.0-0.6); Eosinophils % 7.2 %; Hematocrit 28.5 % (37.5-50.1); Immature Granulocytes % 0.2 % (0-4); Lymphocytes % 32.6 %; Mean Corpuscular HGB Conc 31.6 g/dL (31.6-35.5); Mean Corpuscular Hemoglobin 27.7 pg (28.0-33.3); Mean Corpuscular Volume 87.7 fL (83.0-100.0); Mean Platelet Volume 9.6 fL (9.4-12.4); Monocytes # 0.5 K/mcL (0.0-1.3); Monocytes % 7.5 %; Neutrophils # 3.2 K/mcL (1.6-8.9); Platelet Count 218 K/mcL (140-400); Red Blood Count 3.25 M/mcL (4.19-5.50); Red Cell Distribution Width 14.7 % (11.5-14.5); Segmented Neutrophils % 51.8 %
[2018-01-24 04:18] LABS: Calcium 8.9 mg/dL (8.6-10.3); Potassium 3.3 mEq/L (3.5-5.1)
[2018-01-24] MEDS: *HR* Heparin 5,000 UNIT/ML VIAL SQ SCH ×2 (05:26→17:18)
[2018-01-24] MEDS: Aspirin Enteric Coated 81 MG Tablet PO SCH (07:47)
[2018-01-24] MEDS: *HR* OxyCODONE/APAP 5/325 TABLET PO PRN ×2 (07:52→19:59)
[2018-01-24] MEDS: hydrALAZINE 25 MG TABLET PO SCH ×3 (11:28→21:39)
[2018-01-24] MEDS: cloNIDine HCl 0.1 MG TABLET PO SCH ×3 (11:29→21:39)
[2018-01-24] MEDS: amLODIPine 5 MG TABLET PO SCH (11:29)
[2018-01-24] MEDS: levoFLOXacin 500 MG TABLET PO SCH (11:29)
[2018-01-24] MEDS: *HR* LORazepam 1 MG TABLET PO PRN ×2 (11:30→20:00)
--- NOTE | 2018-01-24 11:59 | Internal Med Progress Note ---
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 Did not see discharge summary..waiting on medical records his renal ultrasound came back as benign s/p renal biopsy .. As per Dr. 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 get benefit with terminal supervisor anticoag I will try to get more details reports from [facility] Then will decide wether he needs any anti coag mean while Nephro is continuing HD for now Ordered hypercoag panel by Nephro (2) Acute respiratory failure with hypoxia Current Visit: Yes Status: Acute Assessment and plan: With pneumonia and COPD exacerbation Improved Switched PO abx Levaquin x 1 more dose - total 7 days course cont Duoneb step pneumonia, Legionella are negative (3) PNA (pneumonia) Current Visit: Yes Status: Acute Assessment and plan: Mostly bacterial continue Levaquin Qualifiers: Pneumonia type: due to unspecified organism Laterality: left Lung location: lower lobe of lung Qualified Code(s): J18.1 - Lobar pneumonia, unspecified organism (4) D-dimer, elevated Current Visit: Yes Status: Acute Assessment and plan: With a past history of DVT high-risk for PE his VQ scan showed low probability for PE patient does not need any anticoagulation (5) Elevated troponin Current Visit: Yes Status: Acute Assessment and plan: Slightly elevated troponin mostly demand ischemia + due to RAUDEL troponin trended down Reviewed echocardiogram showed severe LVH and Systolic dysfunction with LVEF 45% (6) Systolic CHF, chronic Current Visit: Yes Status: Acute Assessment and plan: 2 D Echo showed LVEF 45-50% not in exacerbation ASA + Statin + BB (7) H/O deep venous thrombosis Current Visit: Yes Status: Chronic Assessment and plan: Venous doppler in both legs - Negative (8) Hypertensive urgency Current Visit: Yes Status: Acute Assessment and plan: improved and stable with current regimen changed Clonidine to 0.1mg TID cont Norvasc Inc Coreg to 12.5 (9) Substance abuse Current Visit: Yes Status: Acute Assessment and plan: counseled to quit he does smoke Marijuana regularly his UDS showed ampethamines (10) Tobacco dependence Current Visit: Yes Status: Acute Assessment and plan: counseled to quit - Subjective Interval history: Mr. Schmid is a 42-year-old male who presented to the ED with shortness of breath and bilateral rib pain 1 month. Denies cough, fever, chills. Patient was diagnosed with pneumonia in November. States that since this, he has felt constant shortness of breath and bilateral lower rib pain. Had a previous DVT in March 2017; not currently on any anti coag. Upon arrival, patient had an elevated blood pressure 215/162. Patient was tachycardic at 10 3 bpm, respiratory rate was 24. D-dimer was noted to be elevated at 3136, troponin is elevated at 0.15, creatinine is 6.5. Chest x-ray demonstrated left basilar opacification with mild pleural effusion suggesting pneumonia with parapneumonic effusion. Pt was admitted in the hospital and started him broad spec abx and heparin gtt. Pt states he feels little better today and his b/l rib pain also better. Denied any CP . No fever. Tolerating PO intake well. Breathing comfortably on RA - Constitutional Vitals: Temp Pulse Resp BP Pulse Ox 98.5 F 81 16 134/94 96 01/24/18 11:03 01/24/18 11:03 01/24/18 11:03 01/24/18 11:03 01/24/18 11:03 General appearance: Present: A&O X 3, answers questions appropriately - Head Head exam: Present: atraumatic, normal inspection - Neck Neck exam general surgery: Present: supple - Respiratory Respiratory exam: Present: decreased breath sounds. Absent: rales, respiratory distress, rhonchi, wheezes - Cardiovascular Cardiovascular exam: Present: RRR, +S1, +S2. Absent: systolic murmur, tachycardia - GI/Abdominal GI/Abdominal exam: Present: normal bowel sounds, soft. Absent: rebound, rigid, tenderness - Extremities Exam Extremities exam: Absent: calf tenderness, pedal edema, tenderness - Back Exam Back exam: Absent: CVA tenderness (L), CVA tenderness (R) - Neurological Exam Neurological exam: Present: alert, oriented X3 - Psychiatric Psychiatric exam: Present: normal affect, normal mood Internal Medicine: Result - Labs CBC & Chem 7: 01/24/18 03:10 01/24/18 03:10 Labs: Short CBC 01/24/18 Range/Units 03:10 WBC 6.1 (4.3-11.1) K/mcL Hgb 9.0 L (12.9-16.9) g/dL Hct 28.5 L (37.5-50.1) % Plt Count 218 (140-400) K/mcL Neutrophils # 3.2 (1.6-8.9) K/mcL BMP 01/24/18 03:10 Sodium 140 Potassium 3.3 L Chloride 106 Carbon Dioxide 26 BUN 25 H Creatinine 4.50 H Glucose 151 H Calcium 8.9 - ABG Interpretation ABG results: PT/INR, D-dimer PT 14.6 Seconds (9.4-12.1) H 01/18/18 09:00 D-Dimer 3106 ng/mLFEU (0-500) H 01/18/18 09:00 - VTE Reasons for not Prescribing Prophylaxis: Not indicated-Anticoagulated or INR therapeutic Consult Discharge Plan - Plan Referrals: NONE,PCP [Primary Care Provider] -
[2018-01-24] MEDS: 0.9 % Sodium Chloride 1,000 ML IVC SCH (21:55)
[2018-01-25] MEDS: *HR* OxyCODONE/APAP 10/325 TABLET PO PRN ×4 (03:33→22:35)
[2018-01-25] MEDS: *HR* LORazepam 1 MG TABLET PO PRN ×3 (04:08→22:36)
[2018-01-25 04:31] LABS: Basophils % 0.7 %; Eosinophils # 0.4 K/mcL (0.0-0.6); Eosinophils % 7.9 %; Hematocrit 30.6 % (37.5-50.1); Hemoglobin 9.8 g/dL (12.9-16.9); Immature Granulocytes % 0.6 % (0-4); Lymphocytes # 1.6 K/mcL (0.6-4.6); Lymphocytes % 29.1 %; Mean Corpuscular Hemoglobin 27.8 pg (28.0-33.3); Mean Corpuscular Volume 86.9 fL (83.0-100.0); Mean Platelet Volume 9.9 fL (9.4-12.4); Monocytes # 0.4 K/mcL (0.0-1.3); Monocytes % 8.1 %; Neutrophils # 2.9 K/mcL (1.6-8.9); Platelet Count 218 K/mcL (140-400); Red Blood Count 3.52 M/mcL (4.19-5.50); Red Cell Distribution Width 14.5 % (11.5-14.5); Segmented Neutrophils % 53.6 %
[2018-01-25 04:45] LABS: Calcium 9.1 mg/dL (8.6-10.3); Potassium 3.5 mEq/L (3.5-5.1)
[2018-01-25] MEDS: *HR* Heparin 5,000 UNIT/ML VIAL SQ SCH ×2 (06:06→18:52)
[2018-01-25] MEDS ORDERED: 0.9 % Sodium Chloride 250 ML IVC PRN (06:57)
[2018-01-25] MEDS ORDERED: 0.9 % Sodium Chloride 1,000 ML ONE (07:40)
[2018-01-25] MEDS: Aspirin Enteric Coated 81 MG Tablet PO SCH (08:09)
[2018-01-25] MEDS: cloNIDine HCl 0.1 MG TABLET PO SCH ×3 (10:35→22:36)
[2018-01-25] MEDS: hydrALAZINE 25 MG TABLET PO SCH ×3 (10:35→22:35)
[2018-01-25] MEDS: amLODIPine 5 MG TABLET PO SCH (10:36)
--- NOTE | 2018-01-25 13:57 | Nephrology Progress Note ---
Date of Encounter: 01/25/18 Time of Encounter: 11:55 - Assessment and Plan (1) RAUDEL (acute kidney injury) Status: Acute HD today, which I ordered earlier in the morning, and then he's ready to d/c from my perspective now that he has an HD chair arranged. Pending workup for TMA serologies. Counseled him for >50% of the encounter regarding Permacath care, diet, fluid status, Phos and K+. Thank you. (2) Anemia Status: Acute Follow Hgb. As long as he is not loosing blood, the target Hgb is 10-11 in renal disease. He may need IV iron and/or GLORIA at some point. Qualifiers: Chronic kidney disease stage: on chronic dialysis Qualified Code(s): N18.6 - End stage renal disease; D63.1 - Anemia in chronic kidney disease; D63.1 - Anemia in chronic kidney disease; Z99.2 - Dependence on renal dialysis; Z99.2 - Dependence on renal dialysis; Z99.2 - Dependence on renal dialysis; Z99.2 - Dependence on renal dialysis (3) H/O deep venous thrombosis Status: Chronic Hx of DVT. I've added Antiphospholipid, Anticardiolipin and [id number] serum testing. Consider starting anticoagulation, but will defer to the primary team. He may need to see Hematology as an outpatient at some point. (4) Hypertensive urgency Status: Acute Trending better. See above. Subjective Principal diagnosis: renal failure Interval history: Pt was s/e this AM. He did not affirm N/V/D. He did not affirm any new major complaints. He was s/e while on HD. He voiced that his mother is wanting to buy him supplements and vitamins (I cautioned him against this d/t the risks of K+ and Phos). Objective - Vital Signs Vital signs: Vital Signs Temp Pulse Resp BP Pulse Ox 01/25/18 13:51 97.9 F 90 16 156/113 96 01/25/18 13:39 97.9 F 18 191/102 01/25/18 13:10 158/96 01/25/18 12:55 161/100 01/25/18 12:40 154/110 01/25/18 12:25 166/110 01/25/18 12:10 152/99 01/25/18 11:55 164/108 01/25/18 11:40 156/104 01/25/18 11:25 163/101 01/25/18 11:10 153/101 01/25/18 10:55 148/101 01/25/18 10:40 141/93 01/25/18 10:25 147/97 01/25/18 10:10 97.6 F 18 144/95 01/25/18 06:33 97.7 F 84 16 133/87 96 01/25/18 03:24 98.3 F 85 18 143/91 94 01/24/18 23:43 98.3 F 82 16 109/70 94 01/24/18 21:31 119/80 01/24/18 18:32 97.9 F 84 16 105/69 97 01/24/18 15:32 98.6 F 87 16 130/70 97 Intake and Output 01/24/18 01/25/18 01/25/18 23:59 07:59 15:59 Intake Total 480 / 480 840 / 840 Output Total 0 / 0 0 / 0 1600 / 1600 Balance 480 / 480 0 / 0 -760 / -760 Intake: Oral 480 / 480 240 / 240 Intake, Rinseback and Flushes 600 / 600 Output: Urine 0 / 0 0 / 0 0 / 0 Total Dialysis (HD) Output 1600 / 1600 Other: Meal Dinner Breakfast Percent of Meal Consumed 100% 90% # Bowel Movements 0 Weight 83.552 kg 83.552 kg Hemodialysis Net Fluid Removed 1000 (mL) Patient Weight 01/25/18 23:59 Weight 83.552 kg Additional Comments: General appearance: Present: well-developed, well-nourished, appears started age EENT: Present: ATNC, PERRL, mucous membranes moist Neck: Present: supple Respiratory: Present: clear Cardiology: Present: no edema, regular rate, regular rhythm, normal S1, normal S2 Dialysis Vascular Access: Venous Catheter (Right Permacath was C/D/I) Gastrointestinal: Present: normoactive bowel sounds, no tenderness, no guarding Integumentary: Present: no rash, warm and dry Additional Comments: His shins did not demonstrate any vasculitis like rashes Neurologic: Present: no focal deficit, no asterixis, alert and oriented x3 Musculoskeletal: Present: no deformities, no erythema, no cyanosis Psychiatric: Present: mood/affect appropriate, cooperative - Lab 01/27/18 04:11 01/27/18 04:11 Most recent lab results Calcium 9.1 mg/dL (8.6-10.3) 01/25/18 04:04 Magnesium 2.2 mg/dL (1.6-2.6) 01/22/18 03:28 Urine Creatinine 132 mg/dL 01/20/18 00:55 Urine Sodium 45.7 mEq/L 01/20/18 00:55 Urine Total Protein 183 mg/dL (1-14) H 01/20/18 00:55 - VTE Reasons for not Prescribing Prophylaxis: Not indicated-Anticoagulated or INR therapeutic Consult Discharge Plan - Plan Instructions: Acute Kidney Injury (DC), Hemodialysis (DC) Referrals: [facility] [Outside] (request sent for a new patient hospital follow up on 01/26/18. Phones not working) Gely Steel MD [Partnered Physician] - (1-2 weeks patient will see the physician to HD clinic) Prescriptions: amLODIPine [Norvasc] 10 mg PO DAILY #30 tablet Carvedilol [Coreg] 12.5 mg PO BIDWM #60 tablet cloNIDine HCl [CloNIDine HCl] 0.1 mg PO TID #90 tablet Hydralazine HCl 100 mg PO TID #90 tablet
--- NOTE | 2018-01-25 16:06 | Internal Med Progress Note ---
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 Did not see discharge summary..waiting on medical records his renal ultrasound came back as benign s/p renal biopsy .. As per Dr. 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 I tried to get more detail reports from [facility] - still pending Then will decide wether he needs any anti coag mean while Nephro is continuing HD for now Ordered hypercoag panel by Nephro If Nephro strongly suggests for anti coag would consider Coumadin for anti coag (2) Acute respiratory failure with hypoxia Current Visit: Yes Status: Acute Assessment and plan: With pneumonia and COPD exacerbation Improved Finished 7 days Abx course Levaquin step pneumonia, Legionella are negative (3) PNA (pneumonia) Current Visit: Yes Status: Acute Assessment and plan: Mostly bacterial finished 7 days Levaquin Qualifiers: Pneumonia type: due to unspecified organism Laterality: left Lung location: lower lobe of lung Qualified Code(s): J18.1 - Lobar pneumonia, unspecified organism (4) D-dimer, elevated Current Visit: Yes Status: Acute Assessment and plan: With a past history of DVT high-risk for PE his VQ scan showed low probability for PE patient does not need any anticoagulation (5) Elevated troponin Current Visit: Yes Status: Acute Assessment and plan: Slightly elevated troponin mostly demand ischemia + due to RAUDEL troponin trended down Reviewed echocardiogram showed severe LVH and Systolic dysfunction with LVEF 45% (6) Systolic CHF, chronic Current Visit: Yes Status: Acute Assessment and plan: 2 D Echo showed LVEF 45-50% not in exacerbation ASA + Statin + BB (7) H/O deep venous thrombosis Current Visit: Yes Status: Chronic Assessment and plan: Venous doppler in both legs - Negative (8) Hypertensive urgency Current Visit: Yes Status: Acute Assessment and plan: improved and stable with current regimen changed Clonidine to 0.1mg TID cont Norvasc Inc Coreg to 12.5 (9) Substance abuse Current Visit: Yes Status: Acute Assessment and plan: counseled to quit he does smoke Marijuana regularly his UDS showed ampethamines (10) Tobacco dependence Current Visit: Yes Status: Acute Assessment and plan: counseled to quit - Subjective Interval history: Mr. Schmid is a 42-year-old male who presented to the ED with shortness of breath and bilateral rib pain 1 month. Denies cough, fever, chills. Patient was diagnosed with pneumonia in November. States that since this, he has felt constant shortness of breath and bilateral lower rib pain. Had a previous DVT in March 2017; not currently on any anti coag. Upon arrival, patient had an elevated blood pressure 215/162. Patient was tachycardic at 10 3 bpm, respiratory rate was 24. D-dimer was noted to be elevated at 3136, troponin is elevated at 0.15, creatinine is 6.5. Chest x-ray demonstrated left basilar opacification with mild pleural effusion suggesting pneumonia with parapneumonic effusion. Pt was admitted in the hospital and started him broad spec abx and heparin gtt. His VQ scan was negative for PE, Heparin gtt d/c d. He is on HD for ESRD Pt states he feels little better today and his b/l rib pain also better. Denied any CP . No fever. Tolerating PO intake well. Breathing comfortably on RA - Constitutional Vitals: Temp Pulse Resp BP Pulse Ox 97.9 F 89 16 137/90 95 01/25/18 15:27 01/25/18 15:27 01/25/18 15:27 01/25/18 15:27 01/25/18 15:27 General appearance: Present: A&O X 3, answers questions appropriately - Head Head exam: Present: atraumatic, normal inspection - Neck Neck exam general surgery: Present: supple - Respiratory Respiratory exam: Present: decreased breath sounds. Absent: rales, respiratory distress, rhonchi, wheezes - Cardiovascular Cardiovascular exam: Present: RRR, +S1, +S2. Absent: tachycardia - GI/Abdominal GI/Abdominal exam: Present: normal bowel sounds, soft. Absent: rebound, rigid, tenderness - Extremities Exam Extremities exam: Absent: calf tenderness, pedal edema, tenderness - Back Exam Back exam: Absent: CVA tenderness (L), CVA tenderness (R) - Neurological Exam Neurological exam: Present: alert, oriented X3 - Psychiatric Psychiatric exam: Present: normal affect, normal mood - Skin Skin exam: Absent: rash Internal Medicine: Result - Labs CBC & Chem 7: 01/25/18 04:04 01/25/18 04:04 Labs: Short CBC 01/25/18 Range/Units 04:04 WBC 5.4 (4.3-11.1) K/mcL Hgb 9.8 L (12.9-16.9) g/dL Hct 30.6 L (37.5-50.1) % Plt Count 218 (140-400) K/mcL Neutrophils # 2.9 (1.6-8.9) K/mcL BMP 01/25/18 04:04 Sodium 140 Potassium 3.5 Chloride 105 Carbon Dioxide 25 BUN 32 H Creatinine 5.54 H Glucose 120 H Calcium 9.1 - ABG Interpretation ABG results: PT/INR, D-dimer PT 14.6 Seconds (9.4-12.1) H 01/18/18 09:00 D-Dimer 3106 ng/mLFEU (0-500) H 01/18/18 09:00 - VTE Reasons for not Prescribing Prophylaxis: Not indicated-Anticoagulated or INR therapeutic Consult Discharge Plan - Plan Referrals: NONE,PCP [Primary Care Provider] -
[2018-01-26] MEDS: *HR* OxyCODONE/APAP 10/325 TABLET PO PRN ×3 (04:48→22:12)
[2018-01-26] MEDS: *HR* Heparin 5,000 UNIT/ML VIAL SQ SCH ×2 (06:09→17:32)
[2018-01-26] MEDS: hydrALAZINE 25 MG TABLET PO SCH ×3 (08:29→19:21)
[2018-01-26] MEDS: Aspirin Enteric Coated 81 MG Tablet PO SCH (08:29)
[2018-01-26] MEDS: amLODIPine 5 MG TABLET PO SCH (08:29)
[2018-01-26] MEDS: cloNIDine HCl 0.1 MG TABLET PO SCH ×3 (08:29→19:21)
--- NOTE | 2018-01-26 09:39 | Internal Med Progress Note ---
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 Nephrology is following. Permacath has been placed. Plan for dialysis as an outpatient. We are dealing with insurance issues currently and we applied for Medicaid for him. Once that is approved he may be discharged in order to have him have proper follow-up for outpatient dialysis. Appreciate nephrology's help. (2) Acute respiratory failure with hypoxia Current Visit: Yes Status: Acute Assessment and plan: Resolved. Currently on room air. Was treated for pneumonia with 7 days of Levaquin. (3) D-dimer, elevated Current Visit: Yes Status: Acute Assessment and plan: Negative for PE based on a V/Q low probability. Lower extremity Dopplers are negative for DVTs. (4) Elevated troponin Current Visit: Yes Status: Acute Assessment and plan: Likely demand. No chest pain. (5) Hypertensive urgency Current Visit: Yes Status: Acute Assessment and plan: Blood pressure much better improved. Continue Coreg, hydralazine, clonidine, Norvasc. (6) PNA (pneumonia) Current Visit: Yes Status: Acute Assessment and plan: Finish treatment with Levaquin. Had 7 days. Qualifiers: Pneumonia type: due to unspecified organism Laterality: left Lung location: lower lobe of lung Qualified Code(s): J18.1 - Lobar pneumonia, unspecified organism (7) Substance abuse Current Visit: Yes Status: Acute Assessment and plan: Counseled (8) Systolic CHF, chronic Current Visit: Yes Status: Acute Assessment and plan: Not in exacerbation. Chronic. continue beta jazmine (9) Tobacco dependence Current Visit: Yes Status: Acute Assessment and plan: Says he quit. The patient has been counseled. (10) H/O deep venous thrombosis Current Visit: Yes Status: Chronic Assessment and plan: The patient says he had been diagnosed with a DVT back in March 2017 for which she was put on anticoagulation with Xarelto initially and switched to Coumadin. He says he was not really completely compliant during that time with anticoagulation but he completely took himself off anticoagulation in October 2017 as he noted bleeding issues in his uncles and aunts. He is completely adamant that he will not go on any blood thinner in in the event that he needs to. The patient has been counseled about the risks and benefit. (11) DVT prophylaxis Current Visit: Yes Status: Acute Assessment and plan: Heparin subcutaneous - Subjective Interval history: Patient was seen and examined. No acute events. Dialyzed yesterday and had 3 sessions to initiate dialysis. Diagnosed with TMA with advanced fibrosis and glomerular scarring on kidney biopsy. Patient was admitted with shortness of breath and found to have pneumonia for which she finish treatment for that with Levaquin. Found to have progressive kidney disease and was biopsied with results as above. The patient had been diagnosed with a DVT back in March 2017 for which she was put on anticoagulation and he stopped taking it in October because it has caused issues for his family including his uncles and aunts as they had bleeding episodes on blood thinners. Because of that he stopped taking them. He is not willing to go on blood thinners again. He has not had a DVT or PE on the stay. Currently we are dealing with insurance issues. Patient does not have insurance and we applied for Medicaid for him. Once we have that set up for him to start dialysis as an outpatient we will be able to discharge him. - Constitutional Vitals: Temp Pulse Resp BP Pulse Ox 98.2 F 83 16 141/95 95 01/26/18 07:32 01/26/18 07:32 01/26/18 07:32 01/26/18 07:32 01/26/18 07:32 General appearance: Present: A&O X 3, answers questions appropriately Exam: GEN: NAD CVS: RRR. S1, S2, No m/r/g RESP: CTAB ABD: Soft, NT, ND, +BS EXT: No edema. 2+ DP. No rashes NEURO: Nonfocal Internal Medicine: Result - Labs CBC & Chem 7: 01/25/18 04:04 01/25/18 04:04 - ABG Interpretation ABG results: PT/INR, D-dimer PT 14.6 Seconds (9.4-12.1) H 01/18/18 09:00 D-Dimer 3106 ng/mLFEU (0-500) H 01/18/18 09:00 - VTE Reasons for not Prescribing Prophylaxis: Not indicated-Anticoagulated or INR therapeutic Consult Discharge Plan - Plan Referrals: NONE,PCP [Primary Care Provider] -
[2018-01-26 10:07] LABS: Basophils # 0.1 K/mcL (0.0-0.2); Basophils % 0.9 %; Eosinophils # 0.4 K/mcL (0.0-0.6); Eosinophils % 8.3 %; Hematocrit 31.4 % (37.5-50.1); Hemoglobin 10.1 g/dL (12.9-16.9); Immature Granulocytes % 0.2 % (0-4); Lymphocytes # 1.8 K/mcL (0.6-4.6); Lymphocytes % 33.1 %; Mean Corpuscular HGB Conc 32.2 g/dL (31.6-35.5); Mean Corpuscular Hemoglobin 27.6 pg (28.0-33.3); Mean Corpuscular Volume 85.8 fL (83.0-100.0); Mean Platelet Volume 9.4 fL (9.4-12.4); Monocytes # 0.4 K/mcL (0.0-1.3); Monocytes % 7.1 %; Neutrophils # 2.7 K/mcL (1.6-8.9); Platelet Count 223 K/mcL (140-400); Red Blood Count 3.66 M/mcL (4.19-5.50); Red Cell Distribution Width 14.2 % (11.5-14.5); Segmented Neutrophils % 50.4 %
[2018-01-26 10:15] LABS: Calcium 9.3 mg/dL (8.6-10.3); Magnesium 2.1 mg/dL (1.6-2.6); Potassium 3.9 mEq/L (3.5-5.1)
[2018-01-26] MEDS: *HR* LORazepam 1 MG TABLET PO PRN ×2 (11:08→19:20)
--- NOTE | 2018-01-26 11:19 | Nephrology Progress Note ---
Date of Encounter: 01/26/18 Time of Encounter: 11:17 - Assessment and Plan (1) RAUDEL (acute kidney injury) Current Visit: Yes Status: Acute Patient is ok to be discharged and followed up outpatient from nephro perspective. Biopsy findings was reported as advanced TMA with advanced fibrosis and glomerular scarring. Due to advanced fibrosis, patient has much lower chance of renal recovery - antiphospholipid and anticardiolipin Ab - still pending - avoid plavix and other meds that can potentiate TMA process - Patient will be setup with output HD - avoid nephrotoxins, steroids, I/S such as Cytoxan (2) Anemia Current Visit: Yes Status: Acute As long as he is not losing blood, the target Hgb is 10-11 in renal disease. He may need IV iron and/or GLORIA at some point. Qualifiers: Qualified Code(s): D64.9 - Anemia, unspecified (3) H/O deep venous thrombosis Current Visit: Yes Status: Chronic Hx of DVT. I've added Antiphospholipid, Anticardiolipin and [id number] serum testing. Consider starting anticoagulation. (4) Hypertensive urgency Current Visit: Yes Status: Acute Currently controlled and stable. Subjective Principal diagnosis: renal failure Interval history: Mr Schmid continues to deny nausea, vomiting or diarrhea today. Patient reports no problems overnight, and denies any acute symptoms. Patient is mainly concerned about unresolved insurance issues. Objective - Vital Signs Vital signs: Vital Signs Temp Pulse Resp BP Pulse Ox 01/26/18 10:52 98.1 F 81 17 123/79 94 01/26/18 07:32 98.2 F 83 16 141/95 95 01/26/18 04:52 98.4 F 84 16 132/89 98 01/26/18 00:26 98.6 F 86 16 120/80 94 01/25/18 20:39 98.8 F 85 17 127/86 95 01/25/18 15:27 97.9 F 89 16 137/90 95 01/25/18 13:51 97.9 F 90 16 156/113 96 01/25/18 13:39 97.9 F 18 191/102 01/25/18 13:10 158/96 01/25/18 12:55 161/100 01/25/18 12:40 154/110 01/25/18 12:25 166/110 03/19/18 12:10 152/99 01/25/18 11:55 164/108 01/25/18 11:40 156/104 01/25/18 11:25 163/101 Intake and Output 01/25/18 01/26/18 01/26/18 23:59 07:59 15:59 Intake Total 120 / 120 800 / 800 0 / 0 Output Total 2 / 2 Balance 120 / 120 798 / 798 0 / 0 Intake: Oral 120 / 120 800 / 800 0 / 0 Output: Urine 2 / 2 Other: Meal Lunch npo Percent of Meal Consumed 100% 0% Stool Size Moderate Stool Consistency formed Stool Color Brown # Voids 0 1 # Bowel Movements 0 1 Weight 81.817 kg Patient Weight 01/26/18 23:59 Weight 81.817 kg - General Appearance General appearance: Present: well-developed, well-nourished, appears started age Neck: Present: no JVD Cardiology: Present: no edema, regular rate, regular rhythm Gastrointestinal: Present: normoactive bowel sounds, no tenderness Integumentary: Present: no rash, warm and dry Neurologic: Present: no focal deficit, alert and oriented x3 Musculoskeletal: Present: no erythema, no cyanosis, no clubbing Psychiatric: Present: mood/affect appropriate, cooperative - Lab 01/26/18 09:42 01/26/18 09:42 Most recent lab results Calcium 9.3 mg/dL (8.6-10.3) 01/26/18 09:42 Magnesium 2.1 mg/dL (1.6-2.6) 01/26/18 09:42 Urine Creatinine 132 mg/dL 01/20/18 00:55 Urine Sodium 45.7 mEq/L 01/20/18 00:55 Urine Total Protein 183 mg/dL (1-14) H 01/20/18 00:55 - VTE Reasons for not Prescribing Prophylaxis: Not indicated-Anticoagulated or INR therapeutic Consult Discharge Plan - Plan Referrals: NONE,PCP [Primary Care Provider] -
[2018-01-27 04:59] LABS: Basophils % 0.8 %; Eosinophils # 0.4 K/mcL (0.0-0.6); Eosinophils % 6.8 %; Hematocrit 29.6 % (37.5-50.1); Hemoglobin 9.7 g/dL (12.9-16.9); Immature Granulocytes % 0.2 % (0-4); Lymphocytes # 1.9 K/mcL (0.6-4.6); Lymphocytes % 35.9 %; Mean Corpuscular HGB Conc 32.8 g/dL (31.6-35.5); Mean Corpuscular Volume 85.5 fL (83.0-100.0); Mean Platelet Volume 9.7 fL (9.4-12.4); Monocytes # 0.4 K/mcL (0.0-1.3); Monocytes % 7.4 %; Neutrophils # 2.6 K/mcL (1.6-8.9); Platelet Count 221 K/mcL (140-400); Red Blood Count 3.46 M/mcL (4.19-5.50); Red Cell Distribution Width 13.9 % (11.5-14.5); Segmented Neutrophils % 48.9 %
[2018-01-27] MEDS: *HR* Heparin 5,000 UNIT/ML VIAL SQ SCH (05:02)
[2018-01-27] MEDS: *HR* OxyCODONE/APAP 10/325 TABLET PO PRN (05:02)
[2018-01-27 05:03] LABS: Calcium 9.3 mg/dL (8.6-10.3); Magnesium 2.1 mg/dL (1.6-2.6); Potassium 3.9 mEq/L (3.5-5.1)
[2018-01-27] MEDS ORDERED: 0.9 % Sodium Chloride 250 ML IVC PRN (06:25)
[2018-01-27] MEDS ORDERED: *HR* Heparin 10,000 UNIT/10 ML VIAL IV PRN (06:54)
[2018-01-27] MEDS ORDERED: 0.9 % Sodium Chloride 2,000 ML ONE (06:54)
[2018-01-27] MEDS: Aspirin Enteric Coated 81 MG Tablet PO SCH (07:52)
[2018-01-27] MEDS: cloNIDine HCl 0.1 MG TABLET PO SCH (07:52)
[2018-01-27] MEDS: amLODIPine 5 MG TABLET PO SCH (07:53)
[2018-01-27] MEDS: hydrALAZINE 25 MG TABLET PO SCH (07:53)
[2018-01-27 08:37] LABS: GBM IgG Multiplex Bead Assay 0 AU/mL (0-19); Glomerular Basement Memb IgG NEGATIVE (Negative)
--- NOTE | 2018-01-27 08:39 | Nephrology Progress Note ---
Date of Encounter: 01/27/18 Time of Encounter: 08:39 - Assessment and Plan (1) RAUDEL (acute kidney injury) Current Visit: Yes Status: Acute Patient is ok to be discharged and followed up outpatient from nephro perspective. Biopsy findings was reported as advanced TMA with advanced fibrosis and glomerular scarring. Due to advanced fibrosis, patient has much lower chance of renal recovery. Patient is setup with MWF HD at [place], [place]. Patient was educated to avoid foods that contain K+ and phophorous. Anti- Cardiolipin IGM Ab 25, supsicious for antiphospholipid syndrome, will need follow labs in 12 weeks. JF and dsDNA came back negative, less likely due to SLE. Although patient denies IVDU, drug screen came back positive for amphetamines and patient has a history of bacterial endocarditis. As discussed with medicine team, the patient is in a hypercoagulable state and recommend anti -coagulation at this time. Please avoid lovenox as it is cleared by the kidneys. - start anti-coagulation - Serologies still pending. - avoid plavix and other meds that can potentiate TMA process - avoid nephrotoxins, steroids, I/S such as Cytoxan (2) Anemia Current Visit: Yes Status: Acute As long as he is not losing blood, the target Hgb is 10-11 in renal disease. He may need IV iron and/or GLORIA at some point. Qualifiers: Qualified Code(s): D64.9 - Anemia, unspecified (3) H/O deep venous thrombosis Current Visit: Yes Status: Chronic Hx of DVT. I've added Antiphospholipid, Anticardiolipin and [id number] serum testing. Consider starting anticoagulation. (4) Hypertensive urgency Current Visit: Yes Status: Acute Currently controlled and stable. Subjective Principal diagnosis: renal failure Interval history: Mr Schmid continues to deny nausea, vomiting or diarrhea today. Patient reports no problems overnight, and denies any acute symptoms. Objective - Vital Signs Vital signs: Vital Signs Temp Pulse Resp BP Pulse Ox 01/27/18 07:24 98.1 F 76 16 144/95 98 01/27/18 04:25 97.8 F 82 17 144/101 96 01/26/18 23:53 98 F 85 16 130/83 96 01/26/18 20:05 98 F 83 17 120/82 96 01/26/18 15:41 97.9 F 90 16 136/87 96 01/26/18 10:52 98.1 F 81 17 123/79 94 Intake and Output 01/26/18 01/27/18 01/27/18 23:59 07:59 15:59 Intake Total 800 / 800 Balance 800 / 800 Intake: Oral 800 / 800 Other: # Voids 1 Weight 82.157 kg Patient Weight 01/27/18 23:59 Weight 82.157 kg - General Appearance General appearance: Present: appears started age EENT: Present: mucous membranes moist Neck: Present: no JVD Respiratory: Present: clear Cardiology: Present: no murmurs, no rub, no gallops, no edema, regular rate, regular rhythm, normal S1, normal S2 Gastrointestinal: Present: normoactive bowel sounds, no tenderness, no guarding , no organomegaly, no masses Integumentary: Present: no rash, warm and dry Additional Comments: petechiae BLE Neurologic: Present: no focal deficit, alert and oriented x3 Psychiatric: Present: mood/affect appropriate, cooperative - Lab 01/27/18 04:11 01/27/18 04:11 Most recent lab results Calcium 9.3 mg/dL (8.6-10.3) 01/27/18 04:11 Magnesium 2.1 mg/dL (1.6-2.6) 01/27/18 04:11 Urine Creatinine 132 mg/dL 01/20/18 00:55 Urine Sodium 45.7 mEq/L 01/20/18 00:55 Urine Total Protein 183 mg/dL (1-14) H 01/20/18 00:55 - VTE Reasons for not Prescribing Prophylaxis: Not indicated-Anticoagulated or INR therapeutic Consult Discharge Plan - Plan Instructions: Acute Kidney Injury (DC), Hemodialysis (DC) Referrals: [facility] [Outside] (request sent for a new patient hospital follow up on 01/26/18. Phones not working) Gely Steel MD [Partnered Physician] - (1-2 weeks) Prescriptions: amLODIPine [Norvasc] 10 mg PO DAILY #30 tablet Carvedilol [Coreg] 12.5 mg PO BIDWM #60 tablet cloNIDine HCl [CloNIDine HCl] 0.1 mg PO TID #90 tablet
--- NOTE | 2018-01-27 09:02 | Internal Med Progress Note ---
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 Nephrology is following. Permacath has been placed. Plan for dialysis as an outpatient. We are dealing with insurance issues currently and we applied for Medicaid for him. Once that is approved he may be discharged in order to have him have proper follow-up for outpatient dialysis. Appreciate nephrology's help. (2) Acute respiratory failure with hypoxia Current Visit: Yes Status: Acute Assessment and plan: Resolved. Currently on room air. Was treated for pneumonia with 7 days of Levaquin. (3) D-dimer, elevated Current Visit: Yes Status: Acute Assessment and plan: Negative for PE based on a V/Q low probability. Lower extremity Dopplers are negative for DVTs. (4) Elevated troponin Current Visit: Yes Status: Acute Assessment and plan: Likely demand. No chest pain. (5) Hypertensive urgency Current Visit: Yes Status: Acute Assessment and plan: Blood pressure much better improved. Continue Coreg, hydralazine, clonidine, Norvasc. (6) PNA (pneumonia) Current Visit: Yes Status: Acute Assessment and plan: Finish treatment with Levaquin. Had 7 days. Qualifiers: Pneumonia type: due to unspecified organism Laterality: left Lung location: lower lobe of lung Qualified Code(s): J18.1 - Lobar pneumonia, unspecified organism (7) Substance abuse Current Visit: Yes Status: Acute Assessment and plan: Counseled (8) Systolic CHF, chronic Current Visit: Yes Status: Acute Assessment and plan: Not in exacerbation. Chronic. continue beta jazmine (9) Tobacco dependence Current Visit: Yes Status: Acute Assessment and plan: Says he quit. The patient has been counseled. (10) H/O deep venous thrombosis Current Visit: Yes Status: Chronic Assessment and plan: The patient says he had been diagnosed with a DVT back in March 2017 for which she was put on anticoagulation with Xarelto initially and switched to Coumadin. He says he was not really completely compliant during that time with anticoagulation but he completely took himself off anticoagulation in October 2017 as he noted bleeding issues in his uncles and aunts. He is completely adamant that he will not go on any blood thinner in in the event that he needs to. The patient has been counseled about the risks and benefit. (11) DVT prophylaxis Current Visit: Yes Status: Acute Assessment and plan: Heparin subcutaneous - Subjective Interval history: Patient was seen and examined. No acute events. Has been initiated on with 3 sessions to initiate dialysis. Diagnosed with TMA with advanced fibrosis and glomerular scarring on kidney biopsy. Patient was admitted with shortness of breath and found to have pneumonia for which he finished treatment for that with Levaquin. Found to have progressive kidney disease and was biopsied with results as above. The patient had been diagnosed with a DVT back in March 2017 for which she was put on anticoagulation and he stopped taking it in October because it has caused issues for his family including his uncles and aunts as they had bleeding episodes on blood thinners. Because of that he stopped taking them. He is not willing to go on blood thinners again. He has not had a DVT or PE on the stay. Currently we are dealing with insurance issues. Patient does not have insurance and we applied for Medicaid for him. Once we have that set up for him to start dialysis as an outpatient we will be able to discharge him. - Constitutional Vitals: Temp Pulse Resp BP Pulse Ox 98.1 F 76 16 144/95 98 01/27/18 07:24 01/27/18 07:24 01/27/18 07:24 01/27/18 07:24 01/27/18 07:24 General appearance: Present: A&O X 3, answers questions appropriately Exam: GEN: NAD CVS: RRR. S1, S2, No m/r/g RESP: CTAB ABD: Soft, NT, ND, +BS EXT: No edema. 2+ DP. No rashes NEURO: Nonfocal Internal Medicine: Result - Labs CBC & Chem 7: 01/27/18 04:11 01/27/18 04:11 Labs: Short CBC 01/26/18 01/27/18 Range/Units 09:42 04:11 WBC 5.3 5.3 (4.3-11.1) K/mcL Hgb 10.1 L 9.7 L (12.9-16.9) g/dL Hct 31.4 L 29.6 L (37.5-50.1) % Plt Count 223 221 (140-400) K/mcL Neutrophils # 2.7 2.6 (1.6-8.9) K/mcL BMP 01/26/18 01/27/18 09:42 04:11 Sodium 141 140 Potassium 3.9 3.9 Chloride 105 107 Carbon Dioxide 27 25 BUN 22 H 28 H Creatinine 4.40 H 5.15 H Glucose 115 H 109 H Calcium 9.3 9.3 - ABG Interpretation ABG results: PT/INR, D-dimer PT 14.6 Seconds (9.4-12.1) H 01/18/18 09:00 D-Dimer 3106 ng/mLFEU (0-500) H 01/18/18 09:00 - VTE Reasons for not Prescribing Prophylaxis: Not indicated-Anticoagulated or INR therapeutic Consult Discharge Plan - Plan Instructions: Acute Kidney Injury (DC), Hemodialysis (DC) Referrals: [facility] [Outside] (request sent for a new patient hospital follow up on 01/26/18. Phones not working)
--- NOTE | 2018-01-27 11:27 | Discharge Summary ---
- NOTES TO OUTPATIENT PROVIDER Notes to Outpatient Provider: Please refer the patient to outpatient hematology as nephrology recommended that upon discharge. The patient refused anticoagulation despite recommendations from the hand nailer and myself. He had positive anticardiolipin antibodies. He was on anticoagulations previously for lower extremity DVT and stopped himself back in October due to him seeing bleeding issues and his aunt and uncles being on anticoagulation. Orders not resulted at time of discharge: Pending orders 01/19/18 14:38 Culture,Sputum with Gram Stain [RM] Stat 01/22/18 13:54 PLA2 Receptor IgG Routine 01/23/18 07:20 Antiphospholipid Synd w reflex Routine Cardiolipin IGG IGM IGA Routine 01/23/18 07:57 [id number] Activity Routine Date of Encounter: 01/27/18 Time of Encounter: 11:25 - Discharge Diagnosis (1) RAUDEL (acute kidney injury) Priority: Primary Status: Acute (2) Acute respiratory failure with hypoxia Priority: Primary Status: Acute (3) D-dimer, elevated Priority: Primary Status: Acute (4) Elevated troponin Priority: Primary Status: Acute (5) Hypertensive urgency Priority: Primary Status: Acute (6) PNA (pneumonia) Priority: Primary Status: Acute Qualifiers: Pneumonia type: due to unspecified organism Laterality: left Lung location: lower lobe of lung Qualified Code(s): J18.1 - Lobar pneumonia, unspecified organism (7) Substance abuse Priority: Secondary Status: Acute (8) Systolic CHF, chronic Priority: Secondary Status: Acute (9) Tobacco dependence Priority: Secondary Status: Acute (10) H/O deep venous thrombosis Priority: Secondary Status: Chronic Hospital course: Mr. Schmid is a 42 year old male presented to the ED with shortness of breath and bilateral rib pain 1 month. Had a previous DVT in March 2017; not currently on a blood dinner as he stopped it on his own in October 2017 as he said it was causing his aunt and uncles issues with bleeding while on it and he refused to be on them. Upon arrival, patient had an elevated blood pressure 215 /162. Patient was tachycardic at 103 bpm, respiratory rate was 24. D-dimer was noted to be elevated at 3136, troponin is elevated at 0.15, creatinine is 6.5. Chest x-ray demonstrated left basilar opacification with mild pleural effusion suggesting pneumonia with parapneumonic effusion. A DVT and PE were ruled out. A PE was ruled out based on VQ scan as a CTA was not done due to abnormal kidney function. The patient was admitted to the hospitalist service with a consult to nephrology as creatinine was 6.37 on admission. He was initiated on HD here after a renal biopsy was done showing TMA with glomerular scarring. Part of his work up included chronic kidney disease and multiple serological markers sent by nephrology. A marker for anti-phospholipid syndrome (anti-cariolipin) came back elevated. Nephrology recommended anticoagulation and the patient refused. They recommended he be referred to see a combat control which will need to be set up by his PCP or during future nephrology appointments. He was also treated for pneumonia. The patient had issues with blood pressure control and we ended up starting him on multiple agents including Coreg, clonidine, and Norvasc. He was already on hydralazine at home. The patient was stable for discharge on 01/27/2018 and was set up with outside patient dialysis - Time Spent with Patient Total time spent providing and/or coordinating discharge services: Greater than 30 minutes - Discharge Medications Prescriptions: amLODIPine [Norvasc] 10 mg PO DAILY #30 tablet Carvedilol [Coreg] 12.5 mg PO BIDWM #60 tablet cloNIDine HCl [CloNIDine HCl] 0.1 mg PO TID #90 tablet Hydralazine HCl 100 mg PO TID #90 tablet Home Medications: Carvedilol [Coreg] 12.5 mg PO BIDWM #60 tablet 01/27/18 [Rx] Hydralazine HCl 100 mg PO TID #90 tablet 01/27/18 [Rx] amLODIPine [Norvasc] 10 mg PO DAILY #30 tablet 01/27/18 [Rx] cloNIDine HCl [CloNIDine HCl] 0.1 mg PO TID #90 tablet 01/27/18 [Rx] Allergies/Adverse Reactions: 3 Allergy/AdvReac Type Severity Reaction Status Date / Time naproxen AdvReac Headache Verified 01/18/18 08:42 Date of admission: 01/18/18 15:17 Primary care physician: PCP NONE Consults: 01/21/18 10:36 Consult to Interventional Radiology [CONS] Routine Consulting Provider: Radiology Interventional Cols Reason for Consult: renal bx Time Notified: 10:35 Call Completed: Yes 01/21/18 23:29 Consult to Interventional Radiology [CONS] Routine Consulting Provider: Radiology Interventional Cols Reason for Consult: permcath placement Call Completed: No 01/22/18 08:15 Consult to Dialysis [CONS] ONCE 01/22/18 10:05 Consult to Application Project Leader [CONS] Routine Reason for SW Consult: needs chair time for HD at [facility] 01/23/18 07:15 Consult to Dialysis [CONS] ONCE 01/25/18 07:00 Consult to Dialysis [CONS] ONCE 01/27/18 06:30 Consult to Dialysis [CONS] ONCE - Constitutional Vitals: Temp Pulse Resp BP Pulse Ox 97.4 F L 76 18 154/100 98 01/27/18 08:35 01/27/18 07:24 01/27/18 08:35 01/27/18 11:05 01/27/18 07:24 General appearance: Present: A&O X 3, answers questions appropriately Exam: GEN: NAD CVS: RRR. S1, S2, No m/r/g RESP: CTAB ABD: Soft, NT, ND, +BS EXT: No edema. 2+ DP. No rashes NEURO: Nonfocal - Patient Status Disposition: Home, Self-Care Overall status at discharge: patient is progressing back to baseline - Discharge Instructions Instructions: Acute Kidney Injury (DC), Hemodialysis (DC) Follow Up With: [facility] [Outside] (request sent for a new patient hospital follow up on 01/26/18. Phones not working) Gely Steel MD [Partnered Physician] - (1-2 weeks patient will see the physician to HD clinic) - Diet and Activity Activity: increase activity as tolerated Diet: low salt diet - VTE Reasons for not Prescribing Prophylaxis: Not indicated-Anticoagulated or INR therapeutic
[2018-01-27 12:26] VITALS: BP 166/101
[2018-01-27 17:40] LABS: APTT (LE Anticoag) 46 sec (32-48); Diluted Russell Viper Venom 38 sec (33-44); PT (LE-Anticoag) 15.5 sec (12.0-15.5)
== END 2018-01-27 14:20 | disposition home or self-care (01) | DRG 194 ==
LOC: EMEROO 08:39 → 2ANU 08:39
PROVIDERS: ADMIT Internal Medicine; ATTEND Internal Medicine
PROC: IRPERMA (2018-01-22 11:15)